=== PATIENT | male | born 1930 | race Caucasian/White ===

== ENCOUNTER → 2016-08-28 08:10 | Outpatient (CLI) | payer MEDICARE, OTHER ==
[2014-06-12 09:05] VITALS: BMI 32.3
[~2016-08-28 08:10] MED LIST: ASPIRIN325 MG PO; GLUCOPHAGE500 MG PO; ISOSORBIDE MONO30 M1 PO; MELATONIN PO; NITROSTAT0.4 MG SL; NORVASC2.5 MG PO; TEMAZEPAM PO
== END | disposition home or self-care (01) ==
LOC: D.US 08:10
DX: I71.4 Abdominal aortic aneurysm, without rupture (principal)

== ENCOUNTER → 2016-09-07 11:05 | Outpatient (CLI) | payer MEDICARE, OTHER ==
[2014-06-12 09:05] VITALS: BMI 32.3
== END | disposition home or self-care (01) ==
LOC: D.CT 11:05
DX: I71.4 Abdominal aortic aneurysm, without rupture (principal)

== ENCOUNTER 2016-09-19 05:00 | Inpatient (IN) | payer MEDICARE, OTHER ==
--- NOTE | 2016-09-16 11:13 | HP ---
PATIENT: REINALDO NGUYEN MEDICAL RECORD: [id number] ACCOUNT: [id number] LOCATION:[facility] : 31 ADMISSION DATE: 09/19/16 HISTORY AND PHYSICAL EXAMINATION REINALDO Calderon (86yo, M) ID# [id number]. Date/Time09/14/2016 10:42UNYHH30/11/1932Service Dept.NPP_[facility] ClinicProviderEDCAIN BROWER MDInsuranceMed Primary: [place] Insurance # : [id number] PCP : CARLOS BURR Referring Provider Name : CARLOS BURR Employer Name : RETIRED Med Secondary: FOR LIFE ( - MEDICARE SUPPLEMENT) Insurance # : [id number] Referring Provider Name : CARLOS BURR Employer Name : RETIRED Prescription: ESI1 - Member is eligible. Chief Complaint PVD - peripheral vascular disease Followup: Abdominal aortic aneurysm without rupture s/p EVS left iliac repair 11/17/11 s/p EVS AAA repair RTC after CTA abd and pelvis for test results Patient's Care Team Primary Care Provider (): CARLOS BURR: [address] [facility] , [address], [place] [id number], , Referring Provider (): CARLOS BURR: [address] [facility] , [address], [place] [address], , Other: [facility]: [address] [place] [id number], , Patient's Pharmacies [facility] ([facility]): [address] , [place] [address], , Vitals BP:120/74 sitting R arm 09/14/2016 10:27 amBP Cuff Size:adult 09/14/2016 10:27 amHR:64,reg 09/14/2016 10:27 amHt:5 ft 8 in 09/14/2016 10:23 amWt:220 lbs 09/14/2016 10:27 amNotes:not feeling well today. not sleeping well, c/o indigestion for a week 09/14/2016 10:27 amBMI:33.5 09/14/2016 10:27 amAllergies Reviewed Allergies EZETIMIBEHYDROCHLOROTHIAZIDE: RashLANSOPRAZOLE: HivesMETAXALONE: Other - abdominal painNIACIN: HivesMedications Reviewed Medications amitriptyline 25 mg tablet Take 1 tablet(s) every day by oral route.08/14/16 filledMEDCOamLODIPine 2.5 mg tablet Take 1 tablet(s) every day by oral route as directed.08/14/16 filledMEDCOaspirin 325 mg tablet,delayed release Take 1 tablet(s) every day by oral route as directed.07/29/10 enteredBartow Karrazithromycin 250 mg alhmrd37/17/16 filledMEDCOciprofloxacin 500 mg ehupyg93/25/17 filledMEDCOdonepezil 5 mg tablet TAKE 1 TABLET DAILY08/29/16 filledMEDCOergocalciferol (vitamin D2) 50,000 unit gfecxzr93/25/17 filledMEDCOfluticasone 50 mcg/actuation nasal spray,suspension Use two sprays once daily06/25/16 filledMEDCOFluzone High-Dose 2014-16 (PF) 180 mcg/0.5 mL intramuscular elfcmgz38/19/15 filledsurescriptsgabapentin 300 mg yvlqevj07/14/17 filledMEDCOgabapentin 600 mg tablet HISTORY AND PHYSICAL [id number] REINALDO NGUYEN Take 1 tablet(s) 3 times a day by oral route for 90 days.08/14/16 filledMEDCOhydrocortisone 2.5 % topical cream08/14/16 filledMEDCOisosorbide mononitrate ER 30 mg tablet,extended release 24 hr Take 1 tablet(s) every day by oral route.08/14/16 filledMEDCOketoconazole 2 % qrnitwr02/06/16 filledMEDCOmelatonin 3 mg tablet Take 1 tablet(s) as needed by oral route at bedtime.09/15/13 enteredKim MorganmetFORMIN 500 mg tablet TAKE 1 TABLET EVERY DAY IN THE IEUEEFJ16/18/17 lvqodnZCBDFipphqqhalkom82/04/14 enteredKim Morganmupirocin 2 % topical msvyupbs61/25/17 filledMEDCONitrostat 0.4 mg sublingual ymlymx41/05/17 filledMEDCOpantoprazole 40 mg tablet,delayed release TAKE 1 TABLET DAILY04/05/16 filledMEDCOpravastatin 80 mg tablet TAKE 1 TABLET DAILY07/20/16 filledMEDCORemeron 15 mg tablet Take 1 tablet(s) every day by oral route at bedtime for 30 days.08/09/15 prescribedThomas Liliam Burr, CASSIDYtool Kitjafum08/04/14 enteredKim Morgantemazepam 30 mg hspkfzy28/10/17 filledMEDCOVentolin HFA 90 mcg/actuation aerosol eegwkjs50/17/16 filledMEDCOProblems Reviewed Problems Type 2 diabetes mellitus Dementia Insomnia Obstructive sleep apnea syndrome Impacted cerumen Coronary arteriosclerosis Abdominal aortic aneurysm without rupture Aneurysm - Left Iliac Nasal polyp Chronic rhinitis 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 Spinal stenosis of lumbar region Chronic low back pain Sciatica Sleep pattern disturbance Poor short-term memory Hyperglycemia Family History Discussed Family History Mother- Heart disease ( age: 66) - previously recorded as Heart ProblemMaternal Grandfather- Heart disease - previously recorded as Heart ProblemSister- Malignant neoplastic disease - previously recorded as Cancer, otherMaternal Grandmother- Heart disease - previously recorded as Heart ProblemSocial History Discussed Social History General Occupation: retired Smoking Status: Former smoker (Notes: quit 1955) Smoker (1 PPD) (Notes: for 10 years) Alcohol intake: Occasional (Notes: socially 1-2 week) Surgical History Reviewed Surgical History Other - 06/2014 - PTCA stent AAA Repair - 04/23/2009 HISTORY AND PHYSICAL [id number] REINALDO NGUYEN CABG - 2000 Past Medical History Discussed Past Medical History Aneurysmn (specify): Y - aortic with right iliac artery Angina: Y Aortic Aneurysm: Y Bladder Problems: Y Chest Pain: Y Circulation Problems: Y Coronary Artery Disease: Y Eye Problems: Y Heart Disease: Y High Blood Pressure: Y Hypertension: Y Prostate Problems: Y Documents for Discussion N/A Screening None recorded. HPI Peripheral Vascular Disease Reported by patient. Location: abdomen Associated Symptoms: no weakness; no numbness; no paresthesias; no skin discoloration; no fever left hip claudication ROS Patient reports exercise intolerance but r eports no fever, no night sweats, no significant weight gain, and no significant weight loss. He reports no chest pain, no arm pain on exertion, no shortness of breath when walking, no shortness of breath when lying down, no palpitations, and no known hea rt murmur; left hip claudication. He reports back pain but reports no muscle aches, no muscle weakness, no arthralgias/joint pain, and no swelling in the extremities; back and left hip pain. He reports no dry eyes, no irritation, and no vision change. He re ports no difficulty hearing and no ear pain. He reports no frequent nosebleeds and no nose/sinus problems. He reports no sore throat, no bleeding gums, no snoring, no dry mouth, no mouth ulcers, no oral abnormalities, and no teeth problems. He reports no c ough, no wheezing, no shortness of breath, and no coughing up blood. He reports no abdominal pain, no vomiting, normal appetite, no diarrhea, not vomiting blood, no nausea, and no constipation. He reports no incontinence, no difficulty urinating, no hemat u sonia, and no increased frequency. He reports no abnormal mole, no jaundice, and no rashes. He reports no loss of consciousness, no weakness, no numbness, no seizures, no dizziness, and no headaches. He reports no depression, no sleep disturbances, feeling safe in relationship, and no alcohol abuse. He reports no fatigue. He reports no swollen glands and no bruising. He reports no runny nose, no sinus pressure, no itching, no hives, and no frequent sneezing. ROS as noted in the HPI Physical Exam Patient is an 86-year-old male. Constitutional: General Appearance healthy-appearing, well developed, and overweight. Level of Distress chronically ill. Ambulation limited ambulation. Cardiovascular: Apical Impulse not displaced or no thrill. Heart Auscultation normal s1 and s2; no murmurs, rubs, or gallops; and RRR. Arterial Pulses no abdominal aorta HISTORY AND PHYSICAL [id number] REINALDO NGUYNE bruits, femoral bruits, or popliteal bruits; femoral diminished (left), popliteal not palpable, and dorsalis pedis not palpable (left); and 2+ bilateral, carotid 2+ bilateral, and femoral 2+ bilateral. Edema no edema or varicosities. Lungs: Repiratory Effort no dyspnea. Percussion no hyperresonance or dullness or flatness. Auscultation no wheezing, rhonchi, or rales / crackles and breathing sounds normal, good air movement, and CTA except as noted. Abdomen: Bowl Sounds normal. Inspection and Palpation no tenderness, guarding, masses, or rebound tenderness and soft and non-distended. Liver non-tender and no hepatomegaly. Spleen non-tender and no splenomegaly. Hernia none palpable. Ears, Nose, Throat: Hearing grossly normal hearing. Nose no external nose lesion. Lips, Teeth, and Gums no mouth or lip ulcers. Oropharynx: moist mucous membranes. Musculoskeletal System: Gait And Stance normal gait and stance. Digits and Nails normal nails and no cyanosis. Joints, Bones, and Muscles limited ROM and abnormal strength. Neurologic: Cranial Nerves grossly intact. Reflexes DTRs 2+ bilaterally throughout. Sensation grossly intact. Lymph Nodes: Lymph Nodes no cervical LAD, supraclavicular LAD, axillary LAD, or inguinal LAD. Eyes: Lids and Conjunctivae no discharge or pallor and non-injected. Pupils PERRLA. Cornea grossly intact. EOM EOMI. Lens clear. Sclerae non-icteric. Neck: Neck no masses, enlarged lymph nodes, or carotid bruits and supple and trachea midline. Thyroid no enlargement or nodules and non-tender. Skin: Inspection and Palpation no rash, lesions, ulcers, jaundice, or abnormal nevi. Assessment / Plan claudication left hip and interferes with his daily activities 1. Abdominal aortic aneurysm without rupture I71.4: Abdominal aortic aneurysm, without rupture ABDOMINAL AORTIC ANEURYSM: CARE INSTRUCTIONS Discussion Notes total occlusion left limb of endovascular stent. He has claudication that interferes with daily activities including climbing the stairs to his bedroom. I have discussed his disease process with him and his in detail as well as the alternative methods of treatment. We di s cussed femoral-femoral bypass including the expected benefits and risk which included bleeding, infection, stroke, loss of limb, and , and the imponderables. He understands all of the above and wishes to proceed with planned surgery as soon as possib le. HISTORY AND PHYSICAL [id number] REINALDO NGUYEN EDWARD MD at 1113 CC: [id number] DICTATION DATE: 09/14/16 1030 STUDENT LIFE DEAN: POPPY 09/15/16 1445 PRE IN [place] [id number] [place] [id number]
[2016-09-18 11:19] LABS: APPEARANCE CLEAR (CLEAR); BILIRUBIN NEGATIVE (NEGATIVE); COLOR YELLOW (YELLOW); GLUCOSE NEGATIVE (NEGATIVE); KETONE NEGATIVE (NEGATIVE); LEUKOCYTE ESTERASE NEGATIVE (NEGATIVE); NITRITE NEGATIVE (NEGATIVE); PROTEIN NEGATIVE (NEGATIVE); UROBILINOGEN NORMAL (NORMAL)
[2016-09-18 11:21] LABS: HEMATOCRIT 45.3 % (42.0-54.0); HEMOGLOBIN 15.4 g/dL (13.5-17.5); MCH 31.3 pg (26.0-34.0); MCV 92.1 fL (80.0-100.0); MEAN PLATELET VOLUME 11.4 fL (7.4-10.4); RBC 4.92 10x6/uL (4.20-6.10); RDW 13.2 % (11.5-14.5); WBC 5.1 10x3/uL (4.8-10.8)
[2016-09-18 11:51] LABS: ALBUMIN 3.5 g/dL (3.4-5.0); ANION GAP 11.6 mmol/L (8-16); BILIRUBIN - TOTAL 0.8 mg/dL (0.2-1.3); CALCIUM 8.7 mg/dL (8.5-10.1); CARBON DIOXIDE 28.3 mmol/L (21.0-32.0); CREATININE - SERUM 1.1 mg/dL (0.6-1.3); POTASSIUM - SERUM 3.9 mmol/L (3.5-5.1); PROTEIN - SERUM 7.3 g/dL (6.4-8.2)
[2016-09-18 11:53] LABS: INR 1.04 (0.85-1.17); PROTIME 13.4 SECONDS (11.6-15.0)
[~2016-09-19] VITALS: Ht 172.7 cm; Wt 102.5 kg
[2016-09-19] VITALS (20 sets, daily range): BP systolic 104–140; BP diastolic 46–73; BMI 32.6; BMI 33.3
--- NOTE | ~2016-09-19 | OP ---
PATIENT NAME: REINALDO NGUYEN MEDICAL RECORD: [id number] :31 LOCATION:[facility] ADMISSION DATE:09/19/16 SURGEON: RICK JUÁREZ MD DATE OF OPERATION: 09/19/2016 SURGEON: Rick Juárez MD. ANESTHESIA: General endotracheal, Dr. Scherer. OPERATION PERFORMED: Right to left femoral-femoral bypass utilizing an 8 mm Bard Impra graft. PREOPERATIVE DIAGNOSIS: Rest pain and severe claudication of the left hip. POSTOPERATIVE DIAGNOSIS: Rest pain and severe claudication of the left hip INDICATION FOR OPERATION: Total occlusion of the left iliac artery with symptomatic rest pain. FINDINGS OF THE OPERATION: The Impra graft is a Bard peripheral vascular, lot number [id number]. ESTIMATED BLOOD LOSS: Less than 125 mL. DESCRIPTION OF PROCEDURE: After informed consent and adequate preoperative medication evaluation, the patient was brought to the operating room, placed on the table in the supine position. After induction of general endotracheal anesthesia and application of appropriate monitoring devices, the chest, abdomen and both groins were prepped and draped in a sterile field, utilizing Betadine scrub, alcohol and Betadine solution. A Betadine-impregnated drape was also used. The patient had had 2 previous dissections in the left leg for endovascular stent repair of his abdominal aortic aneurysm as well as endovascular stent repair of an enlarging left iliac artery aneurysm. His right groin had been entered once with several percutaneous interventions. After induction of general endotracheal anesthesia and application of appropriate monitoring devices and prepping, the left groin was explored through an oblique incision just below the inguinal crease. Dissection was carried down the fascia. The superficial femoral artery was identified and dissected back to the takeoff of the profunda femoral artery. The tributaries were surrounded with vessel loops. Attention was then turned toward the right groin and an incision was made above the inguinal ligament. Dissection was carried down to the fascia, hemostasis maintained with electrocautery. The inguinal ligament was elevated and dissection carried out in the distal iliac and proximal common femoral artery. Dissection was then carried out in the preperitoneal space behind the rectus muscle bilaterally and a Loren passer placed behind the rectus muscle. The patient was given a calculated dose of heparin and an 8-mm graft was threaded in the preperitoneal space. The first anastomosis was on the right. The iliac was clamped proximally and distally and the artery opened. The graft was tailored in an end-to-side anastomosis fashion utilizing running 5-0 Albany-Jonathan suture. The clamps were removed from the artery and transferred to the graft. There was good hemostasis. Attention was then turned toward the left groin. The superficial femoral artery was opened just distal to the takeoff of the profunda, and the distal anastomosis fashioned end-to-side utilizing a running 5-0 Albany-Jonatahn suture. All maneuvers to remove trapped air OPERATIVE REPORT [id number] REINALDO NGUYEN were performed, the clamps removed sequentially, artery secured and there was excellent flow through the femoral-femoral graft as well as distally into the right common femoral artery. The patient was given a calculated dose of protamine to reverse the heparin. Hemostasis was achieved. Instrument counts and sponge counts were correct times 2. The wound was closed in layers utilizing 2-0 Vicryl on deep subcutaneous tissue, 3-0 Vicryl on the superficial subcutaneous tissues and skin approximated with 5-0 subcuticular Monocryl. Sterile dressings were applied. The patient tolerated the procedure well and was transferred to CV ICU in satisfactory condition. TRANSINT:[id number] Voice Confirmation ID: [id number] DOCUMENT ID: [id number] RICK JUÁREZ MD CC: [id number] DICTATION DATE: 09/19/161116 AWS SOFTWARE DEVELOPMENT ENGINEER: 09/19/16 2100 ADM IN [facility] [address] [place] [id number]
[2016-09-19] MEDS ORDERED: PLAVIX75 MG PO (05:55)
[2016-09-19] MEDS ORDERED: PRAVACHOL80 MG PO (05:56)
[2016-09-19] MEDS ORDERED: ARICEPT5 MG (05:57)
[2016-09-19] MEDS ORDERED: ELAVIL25 MG PO (05:57)
[2016-09-19] MEDS ORDERED: DOXEPIN HCL10 MG PO (05:58)
[2016-09-19 11:52] LABS: HEMATOCRIT 41.3 % (42.0-54.0); HEMOGLOBIN 14.1 g/dL (13.5-17.5)
--- NOTE | 2016-09-19 12:00 | NUR ---
RECIEVED PT TO ROOM FROM OR. ATTACHED TO ICU MONITORS. FULL ASSESSMENT COMPLETE PER FLOWSHEET. BILAT GROIN DRESSING'S INTACT. GROIN SITES SOFT WITH NO BRUISING NOTED AT THIS TIME. PP EASILY FOUND USING DOPPLER. CALL LIGHT IN REACH. BED IN LOW POSITION. WILL RECOVER PT.
--- NOTE | 2016-09-19 12:28 | NUR ---
AT BEDSIDE. DR. BROWER PRIVIDED UPDATE.
--- NOTE | 2016-09-19 15:17 | NUR ---
* Is the patient Alert and Oriented? Yes 0 * How many steps to enter\exit or inside your home? 2 0 * PCP Dr. Sierra ([facility]) 0 * Pharmacy [facility] 0 * Preadmission Environment Home with Family 0 * ADLs Independent 0 * Equipment CPAP Rolling Walker 0 * List name and contact numbers for known caregivers / representatives who currently or will assist patient after discharge: Spouse - Raquel [phone] or [phone] 0 * Additional services required to return to the preadmission environment? No 0 * Can the patient safely return to the preadmission environment? Yes 0 * Has this patient been hospitalized within the prior 30 days at any hospital? No Patient Name: REINALDO NGUYEN Admission Status: Elective Accout number: [id number] Admission Date: 09-19-2016 : 1931 Admission Diagnosis: Attending: MAGGIE Current LOS: 1 Anticipated DC Date: 09-24-2016 Planned Disposition: Home Primary Insurance: MEDICARE A & B Discharge Planning Comments: CM met with patient & spouse to assess dc plan/needs. Patient states they live together in a two story home - bedroom is upstairs (16 steps). He reports he is independent with all ADL's & IADL's. He states he uses a walker at times & has a home CPAP machine. He denies having had home health services in the past. At fl, he plans to return home with his . He is not opposed to home health services if necessary. CM will follow & assist as needed. Furniture Arranger: Yoly Nuñez
--- NOTE | 2016-09-19 16:30 | NUR ---
PT RECIEVED MEAL TRAY. STATED HE DID NOT WANT TO EAT A REGULAR DIET. JELLO OFFERED AND ACCEPETED. FRESH ICE WATER ALSO PROVIDED.
--- NOTE | 2016-09-19 17:15 | NUR ---
LEFT TO GO HOME. SECURITY CALL IN CODE SET UP.
--- NOTE | 2016-09-19 19:00 | NUR ---
REPORT RECIEVED. ASSESSMENT COMPLETE PER FLOW SHEET. VSS. PT AWAKE ALERT DISORIENTED TO SITUATION. EYES PERRLA 3MM BRISK. O2 VIA NC2L O2 SAT 97% RR 16 NON LABORED SHALLOW BILAT LUNGS CLEAR. HEART S1S2 HR 72 NSR. BP 124/54 VIA R RADIAL ART LINE PATENT WITH GOOD WAVEFORM EXTREMETY PINK WITH GOOD SENSATION WRIST PROTECTOR ON. L SUBCLAVIAN CVL PATENT REFER TO FLOW SHEET FOR INFUSIONS. BS ACTIVE X4. BILAT GROIN INCISION SITE DRSG CDI. NO HEMATOMA PRESENT MINIMAL BRUISING NOTED. HOB AT 20 DEGREES HEELS BRIDGED LEGS STRAIGHT. BILAT PEDAL PULSES PALP +2 AND FOUND VIA DOPPLER. DENIES PAIN OR NEEDS. VSS. WILL CONTINUE TO MONITOR
--- NOTE | 2016-09-19 21:00 | NUR ---
2100 MEDS ADM NO NEW CHANGES. VSS. WILL CONTINUE TO MONITOR
--- NOTE | 2016-09-19 23:00 | NUR ---
REASSESSMENT COMPLETE PER FLOW SHEET. VSS. NO NEW CHANGES. WILL CONTINUE TO MONITOR
[2016-09-20] VITALS (24 sets, daily range): BP systolic 105–126; BP diastolic 33–60; Ht 172.7 cm; Wt 102.5 kg
--- NOTE | 2016-09-20 00:42 | NUR ---
PT SLEEPING COMFORTABLY. VSS. WILL CONTNIUE TO MONITOR
--- NOTE | 2016-09-20 01:40 | NUR ---
PT INCREASINGLY CONFUSED, DISIORIENTED TO PLACE AND SITUATION. REPEATEDLY REMOVING MONITORING EQUIPMENT ASKED MULTIPLE TIMES TO LEAVE EQUIPMENT ALONE, ATTEMPT TO USE DISTRACTION TECHNIQUES BY WATCHING TV/ READING BOOK PT REFUSED. PT GRABS A-LINE AFTER EXPLAINING THE IMPORTANCE OF A-LINE AND CONSEQUENCES OF REMOVING. PT STATES "YOU CAN NOT TELL ME WHAT TO DO, THIS IS MY EQUIPMENT NOW AND I CAN DO I PLEASE IT IS LIKE PAYING A BILL." I REMOVED A LINE FROM PT HAND AND REAPPLIED WRIST PROTECTOR EXPLAINED IMPORTANCE. REFUSES TO STOP REMOVING. CALLED [facility] ICU CHARGE FOR HELP. PT VSS NOW WATCHING TV. NURSE AT BEDSIDE FOR INCREASED OBSERVATION. WILL CONTINUE TO MONITOR
--- NOTE | 2016-09-20 03:20 | NUR ---
RADIOLOGY AT BEDSIDE. PT COMPLIED.
--- NOTE | 2016-09-20 03:40 | NUR ---
RESP. AT BEDSIDE. NO NEW CHANGES
--- NOTE | 2016-09-20 05:40 | NUR ---
REPOSISITONED UP IN BED. NO NEW CHANGES. WILL CONTINUE TO MONITOR
[2016-09-20 06:47] LABS: HEMATOCRIT 35.6 % (42.0-54.0); MCH 31.3 pg (26.0-34.0); MCHC 33.7 g/dL (31.0-37.0); RDW 13.6 % (11.5-14.5); WBC 6.3 10x3/uL (4.8-10.8)
[2016-09-20 06:52] LABS: RBC 3.83 10x6/uL (4.20-6.10)
[2016-09-20 07:06] LABS: ALBUMIN 2.5 g/dL (3.4-5.0); ANION GAP 9.4 mmol/L (8-16); BILIRUBIN - TOTAL 1.3 mg/dL (0.2-1.3); CALCIUM 7.4 mg/dL (8.5-10.1); CARBON DIOXIDE 29.2 mmol/L (21.0-32.0); CREATININE - SERUM 1.1 mg/dL (0.6-1.3); POTASSIUM - SERUM 3.6 mmol/L (3.5-5.1); PROTEIN - SERUM 5.3 g/dL (6.4-8.2)
--- NOTE | 2016-09-20 07:15 | NUR ---
REPORT RECIEVED FROM GEOSPATIAL IMAGE ANALYST NURSE. PT RESTING IN BED WITH EYES CLOSED. RESP EVEN AND UNLABORED. NO S/SX OF ACUTE DISTRESS NOTED AT THIS TIME. VSS. ASSESSMENT COMPLETE PER FLOWSHEET. CALL LIGHT IN REACH. WILL CONT TO ASSESS FOR CHANGES THROUGHOUT SHIFT.
--- NOTE | 2016-09-20 08:30 | NUR ---
DR. BROWER AT BEDSIDE. UDPATE PROVIDED.
--- NOTE | 2016-09-20 11:00 | NUR ---
REASSESSMENT COMPLETE PER FLOWSHEET. NO CHANGES NOTED AT THIS TIME. VSS. PT REMAINS CONFUSED AT THIS TIME. WILL CONT TO ASSESS.
--- NOTE | 2016-09-20 13:30 | NUR ---
TRANSFERED BACK TO BED WITH THE ASSISTANCE OF ANOTHER NURSE. REFUSED TO STAY IN CHAIR UNTIL PT ARRIVED. REQUIRED MAX ASSIST TO GET BACK IN BED. GAIT UNDSTEADY ON TRANSFER. PT UNCOOPERATIVE WITH STAFF.
--- NOTE | 2016-09-20 14:30 | NUR ---
WALKED 250 FT WITH PT. DENIED SOB OR HIP PAIN. ASSISTED BACK TO BED WITH THE ASSISTANCE OF PT.
--- NOTE | 2016-09-20 17:45 | NUR ---
LEFT TO GO HOME. STATED SHE WOULD CALL LATER TO CHECK ON PT. CALL LIGHT IN REACH. BED IN LOW POSITION AND ALARM ON.
--- NOTE | 2016-09-20 19:41 | NUR ---
REPORT RECIEVED. ASSESSMENT COMPLETE PER FLOW SHEET. VSS. PT AWAKE ALERT DISORIENTED TO PLACE TIME AND SITUATION. REORIENTED STATES UNDERSTANDING. EYES PERRLA 3MM BRISK. O2 VIA RA O2 SAT 96% RR 16 NON LABORED BILAT LUNGS CLEAR. HEART S1S2 HR 74 SR. BP 113/54. BS ACTIVE X4. BILAT GROIN INCISION SITE CDI NO DRAINAGE MINIMAL SWELLING NOTED. ICE APPLIED. BILAT PEDAL PULSES PALP +2 HEELS BRIDGED SCD'S ON. DENIES PAIN. VSS WILL CONTINUE TO MONITOR
--- NOTE | 2016-09-20 21:07 | NUR ---
COMPLETE BB LINEN CHANGE ADM. PT INCONTENENT X1. GIVEN UPDATE. VSS. NO NE CHANGES.
[2016-09-21] VITALS (22 sets, daily range): BP systolic 102–144; BP diastolic 51–82
--- NOTE | 2016-09-21 00:41 | NUR ---
REASSESSMENT COMPLETE PER FLOW SHEET. VSS. NO NEW CHANGES. WILL CONTINUE TO MONITOR
--- NOTE | 2016-09-21 01:00 | NUR ---
PT REMOVING MONITOR EQUIPMENT. REAPPLIED. REFUSES TO COMPLY. WILL CONTINUE TO MONITOR
--- NOTE | 2016-09-21 03:20 | NUR ---
REASSESSMENT COMPLETE PER FLOW SHEET. VSS. NO NEW CHANGES. WILL CONTINUE TO MONITOR
--- NOTE | 2016-09-21 07:00 | NUR ---
Received report and assumed care of patient. Patient had voided on himself, patient cleaned up and gotten up to chair with 2 person assistance. Set up with breakfast tray. Call light in lap. Patient denies needs. Denies pain.
--- NOTE | 2016-09-21 07:50 | NUR ---
Patients in room with patient. Update given to .
--- NOTE | 2016-09-21 08:27 | NUR ---
Patient finished with breakfast, remains up in chair. remains at bedside.
--- NOTE | 2016-09-21 08:34 | NUR ---
in room to see patient. Patient to ambulate with PT today. Talks of possible rehab if patient does not progress mobility lyle. Wifes concerns addressed per .
--- NOTE | 2016-09-21 10:00 | NUR ---
Patient was requesting to stand. Called Mohamud with PT to come up, Mohamud in room and walked patient with walker. Per Mohamud, patient did significantly worse than yesterday. Patient had shuffeling gait and was only able to ambulate short distance. Called Francisca Jones RN and informed her of this. She will notify Franck. Will await further orders. Patient in chair with at bedside at this time.
--- NOTE | 2016-09-21 11:30 | NUR ---
Francisca Jones RN in to see patient, informed patient and that he has a Rehab consult and they will evaluate.
--- NOTE | 2016-09-21 11:49 | NUR ---
Rehab Prescreening Consult recieved and the chart has been reviewed. He is a good IRF candidate, however the nurse notes indicate he is confused, disoriented and does not comply with nurses. To qualify for IRF he needs to be able to actively participate in 3 hrs of therapy 5 days a week. Rehab will follow and plan to accept when he is medically stable and his mental status is back to baseline. Thank you for the referral. Jaye Johnson RN Clinical Liaison, Rehab
--- NOTE | 2016-09-21 11:55 | NUR ---
Patient set up with lunch tray, at bedside.
--- NOTE | 2016-09-21 12:02 | NUR ---
instructed not to feed patient. informed that patient was feeding himself this morning and doing fine with doing so. stepped away and patient now self feeding without issue.
--- NOTE | 2016-09-21 12:10 | NUR ---
Called and left for Jaye RN in Rehab regarding patients condition and mental status, waiting on return call.
--- NOTE | 2016-09-21 13:25 | NUR ---
Mohamud with Pt ambulated patient, patient did better than this morning. Patient requested to sit in a different chair than earlier, states it is more comfortable. informed of visitation hours by medical charge entry specialist and asked to step out until 1500 visitation.
--- NOTE | 2016-09-21 15:00 | NUR ---
back in room, c/o rn charge making her leave, informed that is visitation policy. Patient remains up in chair.
--- NOTE | 2016-09-21 16:41 | NUR ---
Patient gotten back to bed with assist x 3 nurses. Patient followed commands and assisted with transfer.
--- NOTE | 2016-09-21 18:23 | NUR ---
Patient resting in bedm call light in reach, denies needs.
--- NOTE | 2016-09-21 19:30 | NUR ---
ASSESSMENT COMPLETED. SEE ASSESSMENT. CONFUSED. REORIENTED. LEFT SC CVL SALINE LOCKED. BILATERAL GROIN INCISION C/D/I WITH BROWN DRSGS INTACT. LEFT GROIN WITH SCATTERED BRUISING NOTED ABOVE THE SITE. PALPABLE PERIPHERAL PULSES +1 PEDAL AND POSTERIOR TIBIAL PULSES. WILL MONITOR.
--- NOTE | 2016-09-21 20:29 | NUR ---
BUBBA WITH R.T. AT BEDSIDE TO DO INCENTIVE SPIROMETRY. 750ML OBTAINED. WILL MONITOR.
--- NOTE | 2016-09-21 21:00 | NUR ---
2100 MEDS GIVEN WITHOUT DIFFICULTY. REPORTS HE TAKES SEVERAL THINGS TO HELP HIM SLEEP. ATTEMPTED TO URINATE INTO URINAL. 100ML OF JUDY URINE NOTED AND URINE NOTED ON BLANKET AND ON WHITE PADS BELOW HIM. POSTERIOR BODY CLEANSED AND JULIETA CARE GIVEN. TURNED AND REPOSITIONED FOR COMFORT. WILL MONITOR.
--- NOTE | 2016-09-21 22:00 | NUR ---
HOLLERING OUT. PULLED OFF GOWN AND MONITORING EQUIPMENT. REPLACED EQUIPMENT. INFORMED OF NEED TO KEEP ON. CONFUSED TO PLACE, TIME AND SITUATION. REORIENTED.
--- NOTE | 2016-09-21 23:30 | NUR ---
REASSESSMENT COMPLETED. SEE ASSESSMENT FLOWSHEET. CONFUSED MORE THAN BEFORE. PULLING AT O2 SAT SENSOR ON MONITOR. ON ROOM AIR. REMOVED CABLE FROM HIS REACH. REORIENTED. RAMBLING WORDS AT TIMES NOT UNDERSTANDABLE. PLACED B/P CUFF BACK ON AND INFORMED OF IMPORTANTANCE TO KEEP ON. WILL MONITOR.
[2016-09-22] VITALS (22 sets, daily range): BP systolic 110–140; BP diastolic 48–96
--- NOTE | 2016-09-22 01:30 | NUR ---
EYES CLOSED. ARMS IN THE ARM REACHING AT SOMETHING. SNORE-LIKE NOISES ALSO HEARD AFTER LEAVING THE ROOM.
--- NOTE | 2016-09-22 03:30 | NUR ---
EYES CLOSED. NO ACUTE DISTRESS NOTED. WILL MONITOR.
--- NOTE | 2016-09-22 04:10 | NUR ---
AWAKE. STATING "IS IT ONLY 0400 IN THE MORNING?" INFORMED THAT IT WAS. ASKED IF HE WANTED TO TURN OVER. REPORTED YES. ALSO REPORTED HE NEEDED TO PEE ONCE ASKED. HELD URINAL FOR HIM SO HE COULD URINATE. 300ML OF DARK, JUDY URINE NOTED. JULIETA CARE COMPLETED. TURNED TO RT SIDE WITH PILLOW SUPPORT. DENIES NEEDS. REASSESSMENT COMPLETED. SEE ASSESSMENT. WILL MONITOR.
--- NOTE | 2016-09-22 05:30 | NUR ---
HAD URINAL IN HIS HAND. ASKED IF HE NEEDED TO "PEE". HE DID AND ATTEMPTED WITH NO SUCCESS. WILL MONITOR.
--- NOTE | 2016-09-22 06:10 | NUR ---
EYES CLOSED. SNORE-LIKE NOISES HEARD. AM LABS DRAWN FROM LEFT SC CVL WITHOUT DIFFICULTY AND FLUSHES WELL. MORE PVC'S NOTED THIS MORNING. WILL CHECK K+ LEVEL. WILL MONITOR.
[2016-09-22 06:23] LABS: HEMATOCRIT 33.9 % (42.0-54.0); HEMOGLOBIN 11.5 g/dL (13.5-17.5); MCH 31.2 pg (26.0-34.0); MCHC 33.9 g/dL (31.0-37.0); MCV 91.9 fL (80.0-100.0); MEAN PLATELET VOLUME 10.6 fL (7.4-10.4); RBC 3.69 10x6/uL (4.20-6.10); RDW 13.4 % (11.5-14.5); WBC 6.8 10x3/uL (4.8-10.8)
[2016-09-22 06:46] LABS: ALBUMIN 2.3 g/dL (3.4-5.0); ALKALINE PHOSPHATASE 50 U/L (46-116); CALC OSMOLALITY 271 mosm/kg (275-300); CALCIUM 7.8 mg/dL (8.5-10.1); CARBON DIOXIDE 28.8 mmol/L (21.0-32.0); CHLORIDE - SERUM 101 mmol/L (98-107); GLUCOSE 120 mg/dL (74-106); POTASSIUM - SERUM 3.1 mmol/L (3.5-5.1); PROTEIN - SERUM 5.9 g/dL (6.4-8.2); SODIUM 136 mmol/L (136-145); UREA NITROGEN 9 mg/dL (7-18)
[2016-09-22 06:55] LABS: ALT (SGPT) 29 U/L (10-68); CREATININE - SERUM 0.8 mg/dL (0.6-1.3); eGFR NON AFRICAN AMERICAN > 90 mL/min (90-120)
--- NOTE | 2016-09-22 07:30 | NUR ---
SHIFT REPORT RECEIVED. ASSUMED CARE OF PATIENT. PT IS AWAKE, CONVERSANT. FOLLOWS COMMANDS. MORNING LAB RESULTS INDICATE 3.1 POTASSIUM. SEPARATIONS SCIENTIST NURSE HAS CONTACTED ADMITTING PHYSICIAN REGARDING RESULTS. HE IS AWARE.
--- NOTE | 2016-09-22 08:45 | NUR ---
PT UP WALKING AT THIS TIME WITH PHYSICAL THERAPY.
--- NOTE | 2016-09-22 09:15 | NUR ---
PT SITTING UP IN CHAIR. BREAKFAST EATEN. POTASSIUM RIDER STARTED. AT BEDSIDE.
--- NOTE | 2016-09-22 09:33 | NUR ---
NUTRITION MONITORING & EVAL CHART REVIEWED. PT REPORTS PT WITH GOOD PO INTAKE ADA DIET. WILL CONTINUE TO PROVIDE DIET, MONITOR PO INTAKE. RD FOLLOWING
--- NOTE | 2016-09-22 10:07 | NUR ---
STAFF FROM REHAB IN PATIENT ROOM FOR EVALUATION. SPEAKING WITH PATIENT AND AT THIS TIME.
--- NOTE | 2016-09-22 10:31 | NUR ---
Reviewed chart and visited with the patient and his at length this morning. According to his and the nurses notes he was more confused last night and difficult to reorient. His says he was combative with her before she left to go home. She does not feel he is ready for rehab at this time. She feels he is to weak and will not be able to participate in 3 hrs of therapy everyday. I assured her he did meet medical and physical criteria but his night time confusion was concerning. At this time he would need a private room and a sitter at night, neither of which is available on the rehab unit. Discussed this with the pt's nurse Stevie and the CM Yoly Nuñez RN. Jaye Johnson RN CL
--- NOTE | 2016-09-22 11:31 | NUR ---
PT ASSISTED TO STAND. C/O BOTTOM HURTING AND NEEDS TO REPOSITION. TRANSFER TO OTHER CHAIR IN ROOM FOR COMFORT. AT BEDSIDE.
--- NOTE | 2016-09-22 12:00 | NUR ---
POTASSIUM RIDER COMPLETE. ACCESS FLUSHED PER PROTOCOL. NO NEW ORDERS FOR LABS.
--- NOTE | 2016-09-22 14:20 | NUR ---
PT HAVING DIFFICULTY HAVING BOWEL MOVEMENT. SAYS IT HAS BEEN SINCE SUNDAY THAT SHE LAST RECALLS HIM HAVING A BOWEL MOVEMENT. PRUNE JUICE HAS BEEN GIVEN AND ORDER FOR MIRALAX RECEIVED.
--- NOTE | 2016-09-22 15:50 | NUR ---
PT ASSISTED BY UP TO TOILET. MISSED TOILET FOR URINATION. LARGE PUDDLE AROUND TOILET. PT COMPLAINING OF SCROTUM BURNING. BUTT PASTE APPLIED. PT LEGS AND FEET CLEANED UP AND DRY SOCKS APPLIED.
--- NOTE | 2016-09-22 16:45 | NUR ---
PT DINNER TRAY PROVIDED. DENIES ANY OTHER NEEDS. AT BEDSIDE.
--- NOTE | 2016-09-22 17:20 | NUR ---
PT ASSISTED TO TOILET. UNABLE TO HAVE BOWEL MOVEMENT. ASSISTED BACK TO CHAIR.
--- NOTE | 2016-09-22 18:07 | NUR ---
PT ASSISTED TO BED. ALL NEW LINENS PLACED PRIOR TO PT GOING TO BED. ONLY ATE FRUIT OFF OF DINNER TRAY. WORRIED HAMBURGER STEAK WITH GRAVY WOULD "GIVE HIM INDIGESTION," AND HE STATES "I'M ON A DIET ANY WAY." DENIED WANTING ANYTHING ELSE. SIDE RAILS X3 AND BED ALARM ON.
--- NOTE | 2016-09-22 19:25 | NUR ---
PT HAS FLUIDS DUE ON EMAR. ORDER FOR SALINE LOCK OF IV WAS ENTERED 09/20/16. NO IV FLUIDS HAVE BEEN GIVEN SINCE 09/20/16. ORDER DISCONTINUED
--- NOTE | 2016-09-22 19:30 | NUR ---
SHIFT ASSESSMENT COMPLETED. SEE ASSESSMENT. CONFUSED TO PLACE AND SITUATION. ORIENTED TO YEAR. SOME THINGS HE SAYS ARE APPROPRIATE TO SITUATION SUCH HE HASN'T HAD A BM ETC AND THAT HIS WENT HOME BECAUSE THERE IS NO BED FOR HER HERE. THEN SAYS HE IS ON THE [employer] COURSE AND HE IS HERE FOR THE GROUP. REORIENTED. SEE ASSESSMENT FOR FURTHER DETAILS.
--- NOTE | 2016-09-22 20:04 | NUR ---
WANTED TO GET UP TO THE BATHROOM. WITH ASSIST OF 2 NURSES UP OOB WITH WALKER TO COMMODE TO TRY TO HAVE A BM.
--- NOTE | 2016-09-22 20:26 | NUR ---
BACK TO BED WITH ASSIST. NO RESULTS IN THE RESTROOM. ASKED WHEN HE WANTED HIS NIGHT-TIME MEDS AND STATED "NOW IS FINE". MEDS GIVEN PRESCRIBED. WILL MONITOR.
--- NOTE | 2016-09-22 21:00 | NUR ---
ASSISTED BACK UP TO BATHROOM WITH ASSIST X2 WITH WALKER. NO RESULTS. BACK TO BED PER REQUEST.
--- NOTE | 2016-09-22 22:15 | NUR ---
WANTED TO GET UP TO USE COMMODE. MAKING SOME JOKES. NO RESULTS AGAIN. BLADDER SCANNED BLADDER AT THIS TIME AND 583ML MAX VOLUME NOTED. WILL MONITOR.
--- NOTE | 2016-09-22 23:20 | NUR ---
CALLED DUE TO CONSTANT CONFUSION, ATTEMPTING TO GET OUT OF BED WITHOUT ASSISTANCE. BECOMING AGITATED. TRIED TO REORIENT HIM. ASSISTED UP TO COMMODE WITH ASSIST OF 2 NURSES AND A WALKER. SHUFFLING GAIT NOTED. ENCOURAGED TO SIT ON TOILET FOR AT LEAST 10-20 MINUTES.
--- NOTE | 2016-09-22 23:30 | NUR ---
IN ATTEMPT TO ASSIST WITH GETTING BACK IN BED, WANTED TO GO OUTSIDE AND TRIED TO LEAVE THE ROOM. ONCE EXPLAINED AGAIN HE WAS IN THE HOSPITAL IN ICU, DISAGREED AND THEN ATTEMPTED TO PUNCH NURSE STANDING IN HIS WAY. HELP ARRIVED AND STILL WAS NON-COMPLIANT AND HAD TO BE PLACED IN BED BY NURSING STAFF X3. PLACED IN SOFT BILATERAL WRIST RESTRAINTS. PLACED BACK ON CONTINUOUS CARDIAC MONITORING EQUIPMENT. CALLED TO GET UPDATE, AND SPOKE ABOUT JUST GETTING HIM BACK IN BED AND RECENT EVENTS. SHE REPORTS SHE WILL BE HEADING UP HERE TO SIT WITH HIM.
--- NOTE | 2016-09-22 23:43 | NUR ---
DR. BROWER CALLED TO MAKE AWARE OF RECENT CONFUSION AND UNCOOPERATIVENESS. INFORMED OF EDEMATOUS SCROTUM AND PENIS AND NO URINE OUTPUT THUS FAR. BLADDER SCANNER RESULTS-583ML. WILL MONITOR AND ASSIST WITH URINATING INTO URINAL NEEDED. NO NEW ORDERS AT THIS TIME.
[2016-09-23] VITALS (24 sets, daily range): BP systolic 106–147; BP diastolic 45–75
--- NOTE | 2016-09-23 00:15 | NUR ---
ARRIVED AND IS NOW AT BEDSIDE. WILL SEE IF RESTRAINTS CAN BE RELEASED.
--- NOTE | 2016-09-23 01:10 | NUR ---
TEMPORARILY RELEASED RESTRAINTS. ASSISTED UP TO BATHROOM TO USE COMMODE. NO RESULTS. DRIBBLES OF URINE NOTED ON WHITE PAD. WHITE PAD CHANGED OUT. BACK TO BED. RESISTED TO GO BACK TO BED FOR A FEW MINUTES THEN TOLD HIM SHE WOULD RUB HIS BACK IF HE LAID DOWN. PULLED UP IN BED AND POSITIONED FOR COMFORT. WILL MONITOR.
--- NOTE | 2016-09-23 02:10 | NUR ---
ATTEMPTED TO PEE IN URINAL WITH AND NURSING ASSIST. NO RESULTS. SPEAKING SENTENCES THAT DO NOT MAKE SENSE. WILL MONITOR.
--- NOTE | 2016-09-23 03:40 | NUR ---
URINATED INTO URINAL WITH 'S ASSISTANCE. DARK, JUDY URINE NOTED-150ML. ENCOURAGED TO TRY TO GO BACK TO SLEEP. WILL MONITOR.
--- NOTE | 2016-09-23 04:50 | NUR ---
URINATED INTO URINAL WITH NURSE ASSIST. STILL CONFUSED BUT MORE COOPERATIVE. RESTRAINTS RELEASED. AT BEDSIDE. REASSESSMENT COMPLETED. SEE ASSESSMENT FLOWSHEET FOR DETAILS.
--- NOTE | 2016-09-23 06:00 | NUR ---
AWAKE. URINATED INTO URINAL WITH 'S HELP. MORE COOPERATIVE THIS MORNING, NOT AGITATED. TOOK B/P CUFF OFF AND WHEN TRYING TO REPLACE IT BACK ON, HE SAYS "YOU'RE HANDS ARE TOO COLD". PLACED ARMS UNDER COVERS. DENIES NEEDS WHEN ASKED. WILL MONITOR.
--- NOTE | 2016-09-23 06:30 | NUR ---
EYES CLOSED. SNORE-LIKE NOISES HEARD. NO ACUTE DISTRESS NOTED. AT BEDSIDE WITH EYES CLOSED. WILL MONITOR.
--- NOTE | 2016-09-23 09:26 | NUR ---
SPOKE WITH ABHISHEK LUNA ON ALF. STATES SHE DID RECIEVE FAX FOR CONSULT. SPOKE WITH DR. CERVANTES CONCERNING CONSULT. STATES TO GET BLADDER SCAN AND HE WILL BE UP TO SEE PT. MED 2 CALLED BLADDER SCANNER REQUESTED.
--- NOTE | 2016-09-23 19:00 | NUR ---
REPORT RECIEVED, INITIAL ASSESSMENT COMPLETE, PLEASE SEE FLOW SHEETS FOR DETAILS. A&O X4. DENIES PAIN/NEEDS ATT. BED LOW AND LOCKED, CALL LIGHT IN REACH. WILL CPOC.
--- NOTE | 2016-09-23 19:30 | NUR ---
COMMUNITY CENTER DIRECTOR LIGHT. UPON ENTERING, AT BEDSIDE, BOTH DENYING NEEDS. REPORTS HE PRESSED THE NURSE BUTTON BY ACCIDENT. WAS TRYING TO CHANGE TV CHANNEL. MORE ORIENTED THAN LAST NIGHT. COOPERATIVE. STATES "ARE YOU BACK TONIGHT?" TOLD HIM I WAS HERE TO HELP TAKE CARE OF HIM BUT I HAD SOMEONE ELSE MORE SICK TONIGHT.
--- NOTE | 2016-09-23 20:10 | NUR ---
PT VOIDED INTO URINAL 390ML YELLOW URINE NOTED. CALLED FOR BLADDER SCANNER.
--- NOTE | 2016-09-23 20:48 | NUR ---
JUST RECIEVED BLADDER SCANNER AND RESIDUAL 221ML, 38 MINUTES POST VOID. PT DENIES PAIN/NEEDS ATT. BED LOW AND LOCKED, CALL LIGHT IN REACH. IN ROOM. WILL CPOC.
--- NOTE | 2016-09-23 23:00 | NUR ---
REASSESSMENT COMPLETE, PLEASE SEE FLOW SHEETS FOR DETAILS. PT TURNS HIMSELF. DENIES PAIN/NEEDS ATT. BED LOW AND LOCKED, CALL LIGHT IN REACH. WILL CPOC.
[2016-09-24] VITALS (24 sets, daily range): BP systolic 98–139; BP diastolic 47–92
--- NOTE | 2016-09-24 00:28 | NUR ---
Patient voided into urinal, 250 out and bladder scan performed and residual showed as 60ml.
--- NOTE | 2016-09-24 01:00 | NUR ---
RUG CLEANING SUPERVISOR LIGHT REQUESTING WATER. WATER GIVEN AND SOME SPILLED ON HIM. CLEANSED OFF HIM. AND WHEN ASKED IF I COULD DO ANYTHING ELSE FOR HIM, STATED "ANOTHER APOLOGY WOULD BE NICE". TOLD HIM I WAS SORRY AGAIN FOR SPILLING WATER ON HIM. IN JOKING SPIRITS. AT BEDSIDE. WILL MONITOR.
--- NOTE | 2016-09-24 01:09 | NUR ---
RESTING. NO S&S OF ACUTE DISTRESS NOTED, SOME CONFUSION NOTED ATT. CANNOT ANSWER ALL QUESTIONS APPROPRIATELY. ASKED TO BE LEFT ALONE. BED LOW AND LOCKED, CALL LIGHT IN REACH. VSS, WILL CPOC.
--- NOTE | 2016-09-24 03:00 | NUR ---
REASSESSMENT COMPLETE, PLEASE SEE FLOW SHEETS FOR DETAILS. PLEASANTLY CONFUSED ATT, JOKING ABOUT WHERE HE IS AND WHO IS PRESIDENT. ALERT TO PERSON AND YEAR, AND TO WHERE HE LIVES. VSS ATT, BED LOW AND LOCKED, MOVES SELF SROUND IN THE BED. CALL LIGHT IN REACH. WILL CPOC.
--- NOTE | 2016-09-24 03:50 | NUR ---
EYES CLOSED. AT BEDSIDE, EYES CLOSED. OCCASSIONAL PVC NOTED ON THE MONITOR. WILL MONITOR.
--- NOTE | 2016-09-24 05:00 | NUR ---
SLEEPING, VSS, BED LOW AND LOCKED, CALL LIGHT IN REACH. WILL CPOC.
--- NOTE | 2016-09-24 08:55 | NUR ---
AMBULATING WITH PHYSICAL THERAPY AND RETURN TO CHAIR-NT ABLE TO DO BLADDER SCAN
--- NOTE | 2016-09-24 08:56 | NUR ---
MODERATE BELLIGERENCE WITH PHYSICAL THERAPY-REGARDING POOR FITTING SLIPPERS FOR PHYSICAL THERAPY-[facility]
--- NOTE | 2016-09-24 19:10 | NUR ---
Received patient resting in bed with eyes closed, assessment completed per flowsheet. Patient confused/disoriented to time/place/situation, calm and follows commands. Eyes PERRLA @ 3mm with brisk response, patient hard of hearing with hearing aids in use bilateral. S1/S2 noted NSR with possible 1st degree block on telemetry, HR 69 rhythmic and regular. Breathing is even and unlabored on room air with O2 sat 94%, lung sounds clear throughout. Old scar noted Mid sternal. Abdomen is round and soft with bowel sounds active x4, non-tender. Patient incontinent of bladder/bowel, no voiding noted at this time. Bilateral incisions noted R/L groin, soft to palpation and dressing CDI. Reddened area/small skin tear noted scrotum, padding applied. Skin is warm/dry to touch, all pulses palpable with cap refill < 3 sec. 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 L subclavian central line noted salin locked, patent with dressing CDI. Patient denies pain or other needs at this time, all VSS and will continue to monitor.
--- NOTE | 2016-09-24 21:00 | NUR ---
No visitors at this time, all HS meds given without difficulty. All pulses palpable with cap refill < 3 sec. Patient is calm and cooperative, follows instructions. Denies pain or other needs at this time, all VSS and will continue to monitor.
--- NOTE | 2016-09-24 21:30 | NUR ---
Spoke to patient's via phone, updated status and answered all questions to satisfaction. Patient requested urinal jug for voiding, assisted and 200ml concentrated yellow urine collected. No further needs at this time, all VSS and will contiue to monitor.
--- NOTE | 2016-09-24 23:05 | NUR ---
Reassessment completed per flowsheet, patient resting in bed with eyes open. Patient still shows some disorientation, but aware he is in hospital and states he's "going home tomorrow". S1/S2 noted NSR on telemetry with possible 1st degree block, HR 73 and regular. Breathing is even and unlabored on room air, O2 sat 95%. All pulses palpable with cap refill < 3 sec, skin is warm/dry to touch. Patient denies pain or other needs at this time, all VSS and will continue to monitor.
[2016-09-25] VITALS: BP 101/43
[2016-09-25 01:00] VITALS: BP 106/45
--- NOTE | 2016-09-25 01:00 | NUR ---
Patient resting in bed with eyes closed, breathing is even and unlabored. Denies pain or other needs at this time, all VSS and will continue to monitor.
[2016-09-25 02:00] VITALS: BP 100/42
--- NOTE | 2016-09-25 02:00 | NUR ---
Patient voided into urinal jug without assistance, 200ml concentrated yellow urin noted in collection. No further needs at this time, all VSS and will continue to monitor.
--- NOTE | 2016-09-25 02:10 | NUR ---
Occaisional PVC's noted on patient telemetry starting around 0200, will make note and continue to monitor.
[2016-09-25 03:00] VITALS: BP 103/45
--- NOTE | 2016-09-25 03:00 | NUR ---
Reassessment completed per flowsheet, patient resting in bed with eyes closed. S1/S2 noted NSR with possible 1st degree block and occasional PVC noted on telemetry with HR 70. Breathing is even and unlabored on room air with O2 sat 95%. Bilateral R/L groin incision dressing CDI, soft to palpation with no bleeding/drainage noted. All pulses palpable with cap refill < 3 sec, skin is warm/dry to touch. Patient slightly disoriented to time/situation, calm and cooperative following commands. Patient denies pain or other needs at this time, all VSS and will continue to monitor.
[2016-09-25 04:00] VITALS: BP 98/53
--- NOTE | 2016-09-25 05:00 | NUR ---
Patient awake in bed requesting assistance to bathroom. Assisted out of bed and patient ambulated to bathroom on own, gait is steady and slightly bent forward. Patient voided without difficulty, assisted to chair at bedside. Patient requested assurance that his "knew where to pick him up today" and stated "he's going home when he gets some clothes". Explained discharge procedure to him, patient states understanding and appears more relaxed. No further needs at this time, all VSS and will continue to monitor.
[2016-09-25 07:00] VITALS: BP 123/50
--- NOTE | 2016-09-25 07:00 | NUR ---
ASSESSMENT PER FLOWSHEET.
[2016-09-25] MEDS ORDERED: FLOMAX0.4 MG PO (09:39)
[2016-09-25] MEDS ORDERED: K-DUR20 MEQ PO (09:39)
[2016-09-25] MEDS ORDERED: PROSCAR5 MG PO (09:40)
--- NOTE | 2016-09-25 10:00 | NUR ---
TLS DCD. VOICES NO CO AT TIME. PRESSURE HELD INSTRUCT NOT TO GET UP. AT BEDSIDE.
--- NOTE | 2016-09-25 10:13 | NUR ---
DC order rec'd. Met with patient and spouse at bedside. They are agreeable to home health for nursing & physical therapy. JACE signed for [facility].Questions answered. Referral faxed to [facility]. Questions answered.
--- NOTE | 2016-09-25 10:50 | NUR ---
DISCHARGED TO HOME WITH . NO QUESTIONS NOTED AT THIS TIME.
--- NOTE | 2016-09-25 11:30 | NUR ---
JOE spoke with Stefani Sierra's office - requested HH orders. Dr. Sierra requests clinical documentation - Faxed. Stefani states they will follow up with home health once Dr. Sierra has reviewed records.
== END 2016-09-25 12:25 | disposition home health service (06) | DRG 253 ==
LOC: D.SDCHOLD 05:00 → D.CVICU 05:00 → D.SDCHOLD 07:30 → D.CVICU 11:09
PROVIDERS: ADMIT Internal Medicine Cardiovascular Disease
PROC: 041K0JJ Bypass Right Femoral Artery to Left Femoral Artery with Synthetic Substitute, Open Approach (ICD-10-PCS; principal; 2016-09-19 07:30)
PROC: 0T9B70Z Drainage of Bladder with Drainage Device, Via Natural or Artificial Opening (ICD-10-PCS; 2016-09-23)
DX: I70.228 Atherosclerosis of native arteries of extremities with rest pain, other extremity (principal); I74.5 Embolism and thrombosis of iliac artery; F05 Delirium due to known physiological condition; G72.81 Critical illness myopathy; E11.9 Type 2 diabetes mellitus without complications; F03.90 Unspecified dementia, unspecified severity, without behavioral disturbance, psychotic disturbance, mood disturbance, and anxiety; G47.00 Insomnia, unspecified; G47.33 Obstructive sleep apnea (adult) (pediatric); I71.4 Abdominal aortic aneurysm, without rupture; I10 Essential (primary) hypertension; E78.5 Hyperlipidemia, unspecified; N39.490 Overflow incontinence

== ENCOUNTER 2016-11-16 07:32 | Outpatient (CLI) | payer MEDICARE, OTHER ==
--- NOTE | ~2016-11-16 | HEMODYNAMI ---
PATIENT:REINALDO NGUYEN MEDICAL RECORD: [id number] : 32 [id number] ADMISSION DATE: 11/16/16 Generatedon:11/17/201615:00 Patient name: REINALDO NGUYEN Patient #: [id number] SSN: : 1930 Date of study: 11/17/2016 Page: Of Hemodynamic Procedure Report Patient Data Patient Demographics Procedure consent was obtained First Name: REINALDO Gender: Male Last Name: WENDY : 1930 [facility] Initial: J Age: 86 year(s) Patient #: [id number] Race: Additional ID: [id number] Contact details Address: [address] [place] [address] State: [place] City: [place] Zip code: [address] Past Medical History Allergies Allergen Reaction Date Comments Reported Other allergy 11/17/2016 See chart. Admission Admission Data Admission Date: 11/16/2016 Admission Time: 8:37 [facility] Results Lab Result Date: 11/16/2016 Lab Result Time: 7:50 Biochemistry Name Units Result Min Max BUN mg/dl 10 --(-*--)-- 7 18 Creatinine mg/dl 1 --(--*-)-- 0.6 1.3 CBC Name Units Result Min Max Hematocrit % 40.6 -*(----)-- 42 54 Hemoglobin g/dl 13.6 --(*---)-- 13.5 17.5 Procedure Procedure Types Cath Procedure PCI Procedure Coronary Stent Initial PTCA Initial Miscellaneous Procedures Moderate Sedation up to 15 minutes Procedure Description Procedure Date Procedure Date: 11/17/2016 Procedure Start Time: 14:44 Procedure End Time: 14:57 Procedure Staff Name Function Johann Atwood MD Performing Physician Georgie Chen RT Scrub Kd Hill RN Nurse Bjorn Elias RT Monitor Gabriele Freeman RT Gunstock Repairer Procedure Data Cath Procedure Fluoroscopy Diagnostic fluoroscopy Total fluoroscopy Time: 2.2 time: 2.2 min min Diagnostic fluoroscopy Total fluoroscopy dose: 408 dose: 408 mGy mGy Contrast Material Contrast Material Type Amount (ml) Isovue 300 40 Entry Location Entry Primary Successful Side Size Upsize Upsize Entry Closure Morrison ccessful Closure Location (Fr) 1 (Fr) 2 (Fr) Remarks Device Remarks Radial Right 6 Fr Mechanical artery Short Compression Estimated blood loss: 10 ml Procedure Complications No complications Procedure Medications Medication Administration Route Dosage Oxygen NC 2 l/min Lidocaine 2% added to field 20 Heparin Flush Bag added to field 2 bags (1000units/500ml NS) 0.9% NaCl I.V. 100 ml/hr Plavix P.O. 75 mg Versed I.V. 1 mg Fentanyl I.V. 50 mcg Versed I.V. 1 mg Fentanyl I.V. 50 mcg Fentanyl I.V. 50 mcg Radial Cocktail I.A. 1 syringe (Verapomil 2mg/Nitro 400mcg/Heparin 1500units) Heparin Bolus I.V. 4000 units Hemodynamics Rest HGB: 13.6 (g/dl) Heart Rate: 65 (bpm) Snapshots Pre Cath Intra NCS Post Cath Vital Signs Time Heart Resp SPO2 NIBP (mmHg) Rhythm Pain Sedation Rate (ipm) (%) Status Level (bpm) 14:25:30 60 18 93 166/86(133) NSR 0 (11) 10(A) , No pain 14:29:55 65 21 95 161/86(97) NSR 0 (11) 10(A) , No pain 14:34:17 61 15 98 166/83(131) NSR 0 (11) 10(A) , No pain 14:38:31 60 13 96 145/94(128) NSR 0 (11) 10(A) , No pain 14:42:47 63 21 95 164/85(128) NSR 0 (11) 10(A) , No pain 14:47:13 67 19 97 151/76(126) NSR 0 (11) 9(A) , No pain 14:51:25 68 18 94 139/74(125) NSR 0 (11) 10(A) , No pain 14:55:10 69 14 95 143/80(104) NSR 0 (11) 10(A) , No pain Medications Time Medication Route Dose Verified Delivered Reason Note s Effectiveness by by 14:28:47 Plavix P.O. 75 mg Johann Yi for Rai Hill RN antiplatelet therapy 14:32:36 Oxygen NC 2 l/min Johann Buffie used for Rai Hill RN procedure 14:32:42 Lidocaine 2% added 20ml Johann Johann for local to vial Rai Atwood MD anesthetic field 14:32:51 Heparin Flush added 2 bags Johann Wills used for Bag to Rai Atwood MD procedure (1000units/500ml field NS) 14:32:59 0.9% NaCl I.V. 100 Johanngunnar Youngbloodie Per physician ml/hr Rai Hill RN 14:40:20 Versed I.V. 1 mg Johann Youngbloodie for sedation Rai Hill RN 14:40:26 Fentanyl I.V. 50 mcg Johann Youngbloodie for sedation Rai Hill RN 14:43:02 Versed I.V. 1 mg Johann Youngbloodie for sedation Rai Hill RN 14:43:07 Fentanyl I.V. 50 mcg Johann Yi for sedation Rai Hill RN 14:46:19 Fentanyl I.V. 50 mcg Johann Yi for sedation Rai Hill RN 14:46:34 Radial Cocktail I.A. 1 Johann Wills for (Verapomil syringe Rai Atwood MD vasodilation 2mg/Nitro 400mcg/Heparin 1500units) 14:47:39 Heparin Bolus I.V. 4000 Johann Yi for units Rai Hill RN anticoagulation Procedure Log Time Note 14:00:32 Gabriele Freeman RT(R) (CV) sent for patient. Start room use. 14:09:09 Informed consent obtained and on chart 14:09:30 Diagnostic Cath status Elective 14:09:32 Time tracking: Regular hours 14:09:35 Plan of Care:Hemodynamics will remain stable., Cardiac rhythm will remain stable., Comfort level will be maintained., Respiratory function will remain adequate., Patient/ family verbilizes understanding of procedure., Procedure tolerated without complication., Recovers from procedure without complications.. 14:13:35 Patient received from PCU to CCL 2 Alert and oriented. Tansferred to table in Supine position. 14:13:36 Warm blankets applied, and wilian hugger turned on for patient comfort. 14:13:36 Correct patient and procedure confirmed by team. 14:13:37 ECG and BP/O2 sat monitors applied to patient. 14:13:59 H&P Date Dictated: 11/16/2016 Within 30 days and on chart.. 14:14:00 Pre-procedure instructions explained to patient. 14:14:01 Pre-op teaching completed and patient verbalized understanding. 14:14:02 Family in patients room. 14:14:03 Patient NPO since Midnight. 14:24:19 Vital chart was started 14:28:47 Plavix 75 mg P.O. was administered by Kd Hill RN; for antiplatelet therapy; 14:32:08 Baseline sample Acquired. 14:32:11 Rhythm: sinus rhythm 14:32:24 Patient allergic to Other allergySee chart. 14:32:25 Is the patient allergic to Iodine/contrast media? No. 14:32:26 Is patient on blood thinner?Yes 14:32:29 ACC The patient was administered the following blood thiners within the last 24 hours: ACCPlavix 14:32:30 Patient diabetic? Yes. 14:32:31 If diabetic: On Metformin? Yes 14:32:33 If on Metformin: Last Dose? 11/15/2016 14:32:36 Oxygen 2 l/min NC was administered by Kd Hill RN; used for procedure; 14:32:36 Previous problem with sedation/anesthesia? No ? 14:32:37 Snore? Yes 14:32:38 Sleep apnea? Yes 14:32:38 Deviated septum? No 14:32:39 Opens mouth fully? Yes 14:32:40 Sticks out tongue? Yes 14:32:42 Lidocaine 2% 20ml vial added to field was administered by Johann Atwood MD; for local anesthetic; 14:32:42 Airway obstruction? No ? 14:32:43 Dentures? No ? 14:32:45 Modified Enrique's test Ulnar < 7 seconds 14:32:47 Patient pain scale 0/10 ?. 14:32:50 IV patent on arrival in left hand with 0.9% NaCl at [facility]. 14:32:51 Heparin Flush Bag (1000units/500ml NS) 2 bags added to field was administered by Johann Atwood MD; used for procedure; 14:32:59 0.9% NaCl 100 ml/hr I.V. was administered by Kd Hill RN; Per physician; 14:33:54 Lab Result : Creatinine 1 mg/dl 14:33:54 Lab Result : BUN 10 mg/dl 14:33:54 Lab Result : Hemoglobin 13.6 g/dl 14:33:54 Lab Result : Hematocrit 40.6 % 14:33:56 Lab results completed and on chart. 14:33:58 Right Radial & Right Groin area was prepped with chlora-prep and draped in sterile fashion 14:33:59 Alarms reviewed by R. N. 14:33:59 Sharps counted by scrub and verified by R.N. 14:34:03 Use device set Radial PCI 14:34:04 St Steven 260cm J .035 wire opened to sterile field. 14:34:05 MBrace Wrist Support opened to sterile field. 14:34:05 Tegaderm 4 x 4 opened to sterile field. 14:34:06 Acist Manifold opened to sterile field. 14:34:06 Acist Syringe opened to sterile field. 14:34:07 Acist Hand Control opened to sterile field. 14:34:07 Bag Decanter opened to sterile field. 14:34:07 Medline Cath Pack opened to sterile field. 14:34:08 Merit BasixCompak Inflation Kit opened to sterile field. 14:34:08 Terumo 6Fr Slender Glidesheath opened to sterile field. 14:34:12 Logan Whisper J 300cm 0.014 guide wire opened to sterile field. 14:35:24 Zero performed for pressure channel P1 14:35:50 Zero performed for pressure channel P1 14:35:54 Zero performed for pressure channel P1 14:39:27 Physician arrived 14:39:28 --------ALL STOP TIME OUT------ 14:39:28 Final Timeout: patient, procedure, and site verified with staff and physician. All members of the team are in agreement. 14:39:29 Right Radial & Right Groin site verified by team. 14:39:32 Physical assessment completed. ASA score P 2 - A patient with mild systemic disease as per Johann Atwood MD. 14:39:36 Sedation plan: IV Moderate Sedation Versed, Fentanyl 14:39:57 IV Extension Set opened to sterile field. 14:40:20 Versed 1 mg I.V. was administered by Kd Hill RN; for sedation; 14:40:26 Fentanyl 50 mcg I.V. was administered by Kd Hill RN; for sedation; 14:42:58 Cordis 6FR XBLAD 3.5 guide catheter opened to sterile field. 14:43:02 Versed 1 mg I.V. was administered by Kd Hill RN; for sedation; 14:43:07 Fentanyl 50 mcg I.V. was administered by Kd Hill RN; for sedation; 14:44:44 Procedure started. 14:44:44 Full Disclosure recording started 14:44:47 Local anesthetic to right radial artery with Lidocaine 2% by Johann Atwood MD.INITIAL ACCESS ONLY 14:45:03 A 6 Fr Short sheath was inserted into the Right Radial artery 14:46:14 6 Fr xblad 3.5 guide catheter was inserted over the wire 14:46:19 Fentanyl 50 mcg I.V. was administered by Kd Hill RN; for sedation; 14:46:34 Radial Cocktail (Verapomil 2mg/Nitro 400mcg/Heparin 1500units) 1 syringe I.A. was administered by Johann Atwood MD; for vasodilation; 14:47:39 Heparin Bolus 4000 units I.V. was administered by Kd Hill RN; for anticoagulation; 14:50:06 whisper wire advanced. 14:50:08 Wire advanced across lesion. 14:50:32 Inflation Number: 1 A Dipesh OTW 3.0 x 08 stent was prepped and advanced across the Prox LAD. The stent was deployed at 12 DALE for 0:10 (min:sec). 14:50:59 Wire redirected to CX. 14:51:16 Inflation number: 1 The stent balloon was then re-inflated across the Prox CX to 17 DALE for 0:10 (min:sec). 14:51:18 Stent catheter was removed intact over wire. 14:51:18 Wire removed. 14:51:18 Guide catheter removed. 14:51:27 Terumo TR Band Large opened to sterile field. 14:51:35 Sheath removed intact; hemostasis achieved with Mechanical Compression to the Right Radial artery. 14:51:36 Procedure ended.(Physican Out) 14:54:23 Fluoroscopy time 02.20 minutes. 14:54:27 Flurop Dose total: 408 14:54:27 Fluoroscopy dose: 408 mGy 14:54:29 Contrast amount:Isovue 300 40ml. 14:54:30 Sharps counted by scrub and verified by R.N. 14:54:33 TR band inflated with 11cc of air. 14:54:34 Insertion/operative site no bleeding no hematoma. 14:54:39 Post right radial artery:stable, soft, clean and dry 14:54:40 Post Procedure Pulses reassessed and unchanged 14:54:42 Post-procedure physical assessment completed. ASA score P 2 - A patient with mild systemic disease as per Johann Atwood MD. 14:54:45 Post procedure rhythm: unchanged. 14:54:47 Estimated blood loss: 10 ml 14:54:50 Post procedure instruction explained to patient.Patient verbalizes understanding. 14:54:52 Patient needs reinforcement of post procedure teaching. 14:55:10 Procedure type changed to Cath procedure, PCI procedure, Coronary Stent Initial, PTCA Initial, Miscellaneous Procedures, Moderate Sedation up to 15 minutes 14:57:29 Procedure and supply charges have been captured, reviewed, submitted and are correct. 14:57:32 Procedure Complication : No complications 14:57:34 Vital chart was stopped 14:57:34 See physician's report for complete and final results. 14:57:49 Report given to PCU. 14:57:56 Patient transfered to PCU with Stretcher. 14:57:59 Procedure ended. 14:57:59 Full Disclosure recording stopped 14:58:19 End room use (Document Last) Intervention Summary Intervention Notes Time ActionType Lesion and Equipment Action# Pressure Duration Attributes Used 14:50:32 Place stent Prox LAD [place] OTW 1 12 00:10 3.0 x 08 stent 14:51:16 Reinflate Prox CX Dipesh OTW 1 17 00:10 stent 3.0 x 08 balloon stent Device Usage Item Name Manufacture Quantity Catalog Hospital Part Current Minima l Lot# / Number Charge Number Stock Stock Serial# Code St Steven St Steven 1 [id number] 213818 369360 399722 30 260cm J .035 wire MBrace Advanced 1 140-0250-00 537655 81833 305699 5 Wrist Vascular Support Dynamics Tegaderm 4 3M 1 1626W 258356 242803 803852 5 x 4 Acist Acist 1 53851 259587 581471 960093 5 Metrum [place] Acist Acist 1 04067 136495 947699 829390 20 Syringe Medical Systems Inc Acist Hand Acist 1 70827 613558 424392 630145 5 Control Medical Systems Inc Bag Microtek 1 2002S 066430 25204 636879 5 Decanter Medical Inc. Medline Cardinal 1 [id number] 159339 10339 704372 5 [facility] 1 [id number] 661935 643015 023940 15 BasixCompak Medical Inflation Kit Terumo 6Fr Terumo 1 [id number] 011195 365323 487991 40 Slender Glidesheath Logan Logan 1 [id number] 660296 133185 651768 5 Whisper J Vascular 300cm 0.014 guide wire IV Hospira 1 20886-44 939697 07609 580415 5 Extension Set Cordis 6FR Cardinal 1 [id number] 091815 823530 956398 10 XBLAD 3.5 Health guide catheter [place] OTW Medtronic 1 [id number] 992685 2503543 510925 5 [id number] 3.0 x 08 stent Terumo TR Terumo 1 [id number] 717417 603869 142526 40 Band Large Signature Audit [place] Stage Time Signature Unsigned Intra-Procedure 11/17/2016 Bjorn Elias 2:59:55 PM RT(R) Signatures Monitor : Bjorn Elias RT Signature : Date : Time : [facility] [address] [place] [address]
--- NOTE | ~2016-11-16 | HEMODYNAMI ---
PATIENT:REINALDO NGUYEN MEDICAL RECORD: [id number] : 32 LOCATION:[place] [address] ADMISSION DATE: 11/16/16 Generatedon:11/16/201613:09 Patient name: REINALDO NGUYEN Patient #: [id number] SSN: : 1930 Date of study: 11/16/2016 Page: Of Hemodynamic Procedure Report Patient Data Patient Demographics Procedure consent was obtained First Name: REINALDO Gender: Male Last Name: WENDY : 1930 Middle Initial: J Age: 86 year(s) Patient #: [id number] Race: Additional ID: [id number] Contact details Address: [address] [place] [address] State: [place] City: [place] Zip code: [address] Admission Admission Data Admission Date: 11/16/2016 Admission Time: 8:37 Room #: [facility] Procedure Procedure Types Cath Procedure Diagnostic Procedure LHC LHC w/Coronaries w/Grafts FFR/IVUS Intra-Coronary IVUS Initial PCI Procedure Coronary Stent Initial Miscellaneous Procedures Moderate Sedation up to 30 minutes Procedure Description Procedure Date Procedure Date: 11/16/2016 Procedure Start Time: 12:42 Procedure End Time: 13:08 Procedure Staff Name Function Johann Atwood MD Performing Physician Marine Perdomo RT Scrub Georgie Chen RT Monitor Karlos Ludwig RN Nurse Procedure Data Cath Procedure Fluoroscopy Diagnostic fluoroscopy Total fluoroscopy Time: 5.5 time: 5.5 min min Diagnostic fluoroscopy Total fluoroscopy dose: dose: 4778 mGy 4778 mGy Contrast Material Contrast Material Type Amount (ml) Isovue 300 104 Entry Location Entry Primary Successful Side Size Upsize Upsize Entry Closure Succes sful Closure Location (Fr) 1 (Fr) 2 (Fr) Remarks Device Remarks Femoral Right 5 Fr 6 Fr Exoseal artery Short Estimated blood loss: 10 ml Diagnostic catheters Device Type Used For End Catheter Placement Cordis 5Fr Pigtail LV Angiography Catheter (MP) Cordis 5Fr JL 4.0 Left Coronary Catheter (MP) Angiography Cordis 5Fr 3DRC Catheter Internal mammary (MP) arteriography Cordis 5Fr 3DRC Catheter Right Coronary (MP) Angiography Procedure Complications No complications Procedure Medications Medication Administration Route Dosage Oxygen NC 2 l/min Heparin Flush Bag added to field 2 bags (1000units/500ml NS) 0.9% NaCl I.V. 100 ml/hr Plavix P.O. 75 mg Fentanyl I.V. 50 mcg Versed I.V. 1 mg Fentanyl I.V. 50 mcg Versed I.V. 1 mg Fentanyl I.V. 50 mcg Fentanyl I.V. 50 mcg Hemodynamics Rest Heart Rate: 60 (bpm) Snapshots Pre Cath Intra NCS Post Cath Vital Signs Time Heart Resp SPO2 NIBP (mmHg) Rhythm Pain Sedation Rate (ipm) (%) Status Level (bpm) 12:20:54 69 16 100 170/92(131) NSR 0 (11) 10(A) , No pain 12:25:22 71 17 100 170/82(130) NSR 0 (11) 10(A) , No pain 12:29:46 62 19 100 166/82(115) NSR 0 (11) 10(A) , No pain 12:34:12 58 17 100 163/75(144) NSR 0 (11) 10(A) , No pain 12:38:34 61 17 100 158/74(133) NSR 0 (11) 10(A) , No pain 12:42:53 59 19 100 145/77(126) NSR 0 (11) 9(A) , No pain 12:47:11 61 17 100 162/88(132) NSR 0 (11) 9(A) , No pain 12:51:35 60 17 100 148/74(122) NSR 0 (11) 9(A) , No pain 12:55:57 64 17 98 151/77(124) NSR 0 (11) 9(A) , No pain 13:00:21 74 16 99 158/79(122) NSR 0 (11) 9(A) , No pain 13:04:39 72 19 100 143/77(122) NSR 0 (11) 9(A) , No pain 13:08:57 68 11 100 152/83(122) NSR 0 (11) 9(A) , No pain Medications Time Medication Route Dose Verified Delivered Reason Notes Ef fectiveness by by 12:22:00 Oxygen NC 2 Johann Karlos Per l/min Rai Ludwig RN physician 12:22:12 Heparin Flush added 2 Johann Karlos used for Bag to bags Rai Ludwig RN procedure (1000units/500ml field NS) 12:22:22 0.9% NaCl I.V. 100 Johann Karlos Per ml/hr Rai Ludwig RN physician 12:28:08 Plavix P.O. 75 mg Johann Sarmientoy for Rai Ludwig RN antiplatelet therapy 12:35:09 Fentanyl I.V. 50 Johann Karlos for sedation mcg Rai Ludwig RN 12:35:18 Versed I.V. 1 mg Johann Karlos for sedation Rai Ludwig RN 12:41:31 Fentanyl I.V. 50 Johann Karlos for sedation mcg Rai Ludwig RN 12:41:36 Versed I.V. 1 mg Johann Karlos for sedation Rai Ludwig RN 12:47:01 Fentanyl I.V. 50 Johann Karlos for sedation mcg Rai Ludwig RN 12:47:06 Fentanyl I.V. 50 Johann Karlos for sedation mcg Rai Ludwig RN Procedure Log Time Note 11:50:33 Georgie Counts RT(R) sent for patient. Start room use. 11:53:54 Time tracking: Regular hours 11:53:58 Plan of Care:Hemodynamics will remain stable., Cardiac rhythm will remain stable., Comfort level will be maintained., Respiratory function will remain adequate., Patient/ family verbilizes understanding of procedure., Procedure tolerated without complication., Recovers from procedure without complications.. 12:08:56 Patient received from Med II to CCL 3 Alert and oriented. Tansferred to table in Supine position. 12:08:58 Warm blankets applied, and wilian hugger turned on for patient comfort. 12:08:58 Correct patient and procedure confirmed by team. 12:09:00 Signed procedure consent form obtained from patient. 12:09:01 ECG and BP/O2 sat monitors applied to patient. 12:19:40 Full Disclosure recording started 12:19:41 Vital chart was started 12:19:45 Rhythm: 1st degree heart block 12:22:00 Oxygen 2 l/min NC was administered by Karlos Ludwig RN; Per physician; 12:22:12 Heparin Flush Bag (1000units/500ml NS) 2 bags added to field was administered by Karlos Ludwig RN; used for procedure; 12:: 0.9% NaCl 100 ml/hr I.V. was administered by Karlos Ludwig RN; Per physician; 12:22:53 H&P Date Dictated: 11/16/2016 Within 30 days and on chart.. 12::55 Pre-procedure instructions explained to patient. 12::55 Pre-op teaching completed and patient verbalized understanding. 12:22:56 Family in patients room. 12:23:03 Patient NPO since Midnight. 12:23:15 Is the patient allergic to Iodine/contrast media? No. 12:23:50 Is patient on blood thinner?Yes 12:23:54 ACC The patient was administered the following blood thiners within the last 24 hours: ACCPlavix 12:23:56 Patient diabetic? Yes. 12:23:57 If diabetic: On Metformin? Yes 12:23:59 If on Metformin: Last Dose? 11/15/2016 12:24:02 Previous problem with sedation/anesthesia? No ? 12:24:04 Snore? Yes 12:24:05 Sleep apnea? No 12:24:06 Deviated septum? No 12:24:09 Opens mouth fully? Yes 12:24:10 Sticks out tongue? Yes 12:24:14 Airway obstruction? No ? 12:24:17 Dentures? No ? 12:24:21 Pre procedure: right dorsailis pedis pulse 2+ Normal; easily identifiable; not easily obliterated 12:24:23 Patient pain scale 0/10 ?. 12:24:28 IV patent on arrival in left hand with 0.9% NaCl at KVO. 12:24:31 Lab results completed and on chart. 12:24:39 Right groin area was prepped with chlora-prep and draped in sterile fashion 12:24:40 Alarms reviewed by R. N. 12:24:40 Sharps counted by scrub and verified by R.N. 12:24:43 Use device set Femoral Dx 12:24:44 Acist Syringe opened to sterile field. 12:24:44 Bag Decanter opened to sterile field. 12:24:45 Medline Cath Pack opened to sterile field. 12:24:45 Terumo 5Fr Wright Sheath opened to sterile field. 12:24:45 St Steven 260cm J .035 wire opened to sterile field. 12:24:47 Acist Hand Control opened to sterile field. 12:24:47 Acist Manifold opened to sterile field. 12:24:47 Diagnostic Infinity 5Fr Multipack catheter opened to sterile field. 12:24:48 Tegaderm 4 x 4 opened to sterile field. 12::42 Zero performed for pressure channel P1 12:28:08 Plavix 75 mg P.O. was administered by Karlos Ludwig RN; for antiplatelet therapy; 12::24 Baseline sample Acquired. 12::44 PERCUTANEOUS ENTRY 19GA needle opened to sterile field. 12:33:23 Final Timeout: patient, procedure, and site verified with staff and physician. All members of the team are in agreement. 12:33:25 Right groin site verified by team. 12:33:28 Physical assessment completed. ASA score P 2 - A patient with mild systemic disease as per Johann Atwood MD. 12:33:31 Sedation plan: IV Moderate Sedation Versed, Fentanyl 12:35:09 Fentanyl 50 mcg I.V. was administered by Karlos Ludwig RN; for sedation; 12:35:18 Versed 1 mg I.V. was administered by Karlos Ludwig RN; for sedation; 12:41:31 Fentanyl 50 mcg I.V. was administered by Karlos Ludwig RN; for sedation; 12:41:36 Versed 1 mg I.V. was administered by Karlos Ludwig RN; for sedation; 12:42:25 Procedure started. 12:42:30 Local anesthetic to right femoral artery with Lidocaine 2% by Johann Atwood MD.INITIAL ACCESS ONLY 12:45:53 A 5 Fr sheath was inserted into the Right Femoral artery 12:47:01 Fentanyl 50 mcg I.V. was administered by Karlos Ludwig RN; for sedation; 12:47:06 Fentanyl 50 mcg I.V. was administered by Karlos Ludwig RN; for sedation; 12:48:08 A Cordis 5Fr Pigtail Catheter (MP) was advanced over the wire and used for LV Angiography. 12:48:28 LV gram done using VEGA 12:48:32 EF : 40 % 12:48:35 Injector settings: Ml/sec: 10, Volume: 20, 12:48:36 Catheter removed. 12:48:42 A Cordis 5Fr JL 4.0 Catheter (MP) was advanced over the wire and used for Left Coronary Angiography. 12:50:15 Catheter removed. 12:50:30 Terumo 6Fr Wright Sheath opened to sterile field. 12:50:31 Gorbisper J 300cm 0.014 guide wire opened to sterile field. 12:50:31 Pharmacopeia BasixCompak Inflation Kit opened to sterile field. 12:50:51 A Cordis 5Fr 3DRC Catheter (MP) was advanced over the wire and used for Internal mammary arteriography.to LAD 12:51:28 A Cordis 5Fr 3DRC Catheter (MP) was advanced over the wire and used for Right Coronary Angiography. 12:53:32 GiveNexttronic Launcher 6Fr AR 2.0 guide catheter opened to sterile field. 12:53:38 TrustedPlaces [place] IVUS Catheter opened to sterile field. 12:54:47 Sheath upsized to a 6 Fr Short. 12:54:57 6 Fr AR 2.0 guide catheter was inserted over the wire 12:55:12 Whisper wire advanced. 12:55:31 IVUS catheter advanced over wire. 12:55:34 IVUS pass to RCA lesion performed. 12:56:53 IVUS catheter removed over wire. 12:59:00 Inflation Number: 1 A Thatcher RX 4.0 x 12 stent was prepped and advanced across the Prox RCA. The stent was deployed at 15 DALE for 0:12 (min:sec). 12:59:15 Inflation number: 2 The stent balloon was then re-inflated across the Prox RCA to 15 DALE for 0:03 (min:sec). 12:59:27 Inflation number: 3 The stent balloon was then re-inflated across the Prox RCA to 15 DALE for 0:07 (min:sec). 12:59:39 Inflation number: 4 The stent balloon was then re-inflated across the Prox RCA to 15 DALE for 0:02 (min:sec). 13:00:10 Stent catheter was removed intact over wire. 13:00:11 Wire removed. 13:00:11 Guide catheter removed. 13:00:52 Sheath removed intact; hemostasis achieved with Exoseal to the Right Femoral artery. 13:00:55 Procedure ended.(Physican Out) 13:02:39 Fluoroscopy time 05.50 minutes. 13:02:47 Flurop Dose total: 4778 13:02:47 Fluoroscopy dose: 4778 mGy 13:02:54 Contrast amount:Isovue 300 104ml. 13:02:56 Sharps counted by scrub and verified by R.N. 13:02:57 Insertion/operative site no bleeding no hematoma. 13:03:00 Post-op/insertion site Right Femoral artery dressed using a 4 x 4 and Tegaderm. 13:03:03 Post right femoral artery:stable, clean and dry 13:03:05 Post Procedure Pulses reassessed and unchanged 13:03:07 Post-procedure physical assessment completed. ASA score P 2 - A patient with mild systemic disease as per Johann Atwood MD. 13:03:09 Post procedure rhythm: unchanged. 13:03:11 Estimated blood loss: 10 ml 13:03:13 Post procedure instruction explained to patient.Patient verbalizes understanding. 13:03:14 Patient needs reinforcement of post procedure teaching. 13:03:15 Procedure and supply charges have been captured, reviewed, submitted and are correct. 13:03:36 Procedure type changed to Cath procedure, Diagnostic procedure, LHC, LHC w/Coronaries w/Grafts, FFR/IVUS, Intra-Coronary IVUS Initial, PCI procedure, Coronary Stent Initial, Miscellaneous Procedures, Moderate Sedation up to 30 minutes 13:03:41 Procedure Complication : No complications 13:03:43 See physician's report for complete and final results. 13:04:01 Cordis 6Fr Exoseal opened to sterile field. 13:08:31 Vital chart was stopped 13:08:33 Report given to PCU. 13:08:36 Patient transfered to PCU with Bed. 13:08:50 Procedure ended. 13:08:50 Full Disclosure recording stopped 13:08:57 End room use (Document Last) Intervention Summary Intervention Notes Time ActionType Lesion and Equipment Action# Pressure Duration Attributes Used 12:59:00 Place stent Prox RCA Thatcher RX 1 15 00:12 4.0 x 12 stent 12:59:15 Reinflate Prox RCA Dipesh RX 2 15 00:03 stent 4.0 x 12 balloon stent 12:59:27 Reinflate Prox RCA Thatcher RX 3 15 00:07 stent 4.0 x 12 balloon stent 12:59:39 Reinflate Prox RCA Thatcher RX 4 15 00:02 stent 4.0 x 12 balloon stent Device Usage Item Name Manufacture Quantity Catalog Number Hospital Part Current Min imal Lot# / Charge Number Stock Stock Serial# Code Acist Acist 1 43374 179602 057950 241421 20 Syringe Medical Systems Inc Bag Decanter Microtek 1 2002S 725346 84448 287824 5 Medical Inc. Medline Cath Cardinal 1 [id number] 326840 72349 831405 5 Pack Health Terumo 5Fr Terumo 1 ARM222 828358 941841 343552 [address] Steven 1 071165 907641 658116 254102 30 260cm J .035 wire Acist Hand Acist 1 83825 073720 754589 669566 5 Control Medical Systems Inc Acist Acist 1 28216 657097 702925 569621 5 Estate Assist Medical Systems Inc Diagnostic Cardinal 1 [id number] 065977 50167 280437 30 Infinity 5Fr Health Multipack catheter Tegaderm 4 x 3M 1 1626W 771080 585135 941267 5 4 PERCUTANEOUS [facility] 1 W65305 798935 203040 5 ENTRY 19GA needle Cordis 5Fr Cardinal 1 111481 5 Pigtail Health Catheter (MP) Cordis 5Fr Cardinal 1 725794 5 JL 4.0 Health Catheter (MP) Terumo 6Fr Terumo 1 AHH892 175067 334737 039687 40 Wright Sheath Logan Logan 1 [id number] 170796 896343 147654 5 isper J Vascular 300cm 0.014 guide wire Merit Merit 1 WQ7610 034474 087808 157198 15 Medingo [employer] Medical Inflation Kit Cordis 5Fr Cardinal 1 567363 5 3DRC Health Catheter (MP) Medtronic Medtronic 1 [id number] 640039 57313 098101 1 Launcher 6Fr AR 2.0 guide catheter [place] 1 [id number] 981173 436402 351763 8 [place] IVUS Catheter Thatcher RX 4.0 Medtronic 1 [id number] 255675 3219016 214169 5 [id number] x 12 stent Cordis 6Fr Cardinal 1 EX600 239015 304975 923482 10 Exoseal Health Signature Audit [place] Stage Time Signature Unsigned Intra-Procedure 11/16/2016 Georgie 1:09:09 PM Counts RT(R) Signatures Monitor : Georgie Signature : Counts RT Date : Time : [address] [place] [address]
[~2016-11-16 07:32] MED LIST changes: +ARICEPT5 MG PO; +DOXEPIN HCL10 MG PO; +ELAVIL25 MG PO; +FLOMAX0.4 MG PO; +K-DUR20 MEQ PO; +PLAVIX75 MG PO; +PRAVACHOL80 MG PO; +PROSCAR5 MG PO
[2016-11-16 08:07] LABS: BASOPHILS 0.2 % (0-2); EOSINOPHILS 3.1 % (0-7); HEMATOCRIT 40.6 % (42.0-54.0); HEMOGLOBIN 13.6 g/dL (13.5-17.5); IMMATURE GRANULOCYTES 0.2 % (0-5); LYMPHOCYTES 37.8 % (15-50); MCHC 33.5 g/dL (31.0-37.0); MCV 92.5 fL (80.0-100.0); MEAN PLATELET VOLUME 10.6 fL (7.4-10.4); MONOCYTES 13.7 % (2-11); PLATELET COUNT 114 10x3/uL (130-400); RBC 4.39 10x6/uL (4.20-6.10); WBC 4.5 10x3/uL (4.8-10.8)
[2016-11-16 08:54] LABS: ALBUMIN 3.1 g/dL (3.4-5.0); ALKALINE PHOSPHATASE 67 U/L (46-116); ALT (SGPT) 21 U/L (10-68); BILIRUBIN - TOTAL 0.51 mg/dL (0.2-1.3); CALC OSMOLALITY 272 mosm/kg (275-300); CALCIUM 8.4 mg/dL (8.5-10.1); CARBON DIOXIDE 25.1 mmol/L (21.0-32.0); CHLORIDE - SERUM 105 mmol/L (98-107); GLUCOSE 99 mg/dL (74-106); POTASSIUM - SERUM 4.2 mmol/L (3.5-5.1); PROTEIN - SERUM 6.8 g/dL (6.4-8.2); SODIUM 137 mmol/L (136-145); UREA NITROGEN 10 mg/dL (7-18); eGFR NON AFRICAN AMERICAN 75 mL/min (90-120)
[2016-11-16 09:01] LABS: CKMB 0.2 U/L (0.0-3.6); CREATINE KINASE 46 UL (21-232)
[2016-11-16 09:04] LABS: TROPONIN-I < 0.017 ng/mL (0.000-0.060)
--- NOTE | 2016-11-16 09:49 | NUR ---
TRANSFER FROM ER BY STRETCHER. OREINTED TO ROOM. CALL LIGHT IN REACH. WILL CONT. PLAN OF CARE.
[2016-11-16 10:02] VITALS: BP 145/78; BMI 31.2
[2016-11-16] MEDS ORDERED: PROTONIX40 MG PO (10:13)
[2016-11-16] MEDS ORDERED: NEURONTIN600 MG PO (10:14)
[2016-11-16] MEDS ORDERED: CARAFATE1 G/10 ML PO (10:14)
--- NOTE | 2016-11-16 12:16 | NUR ---
PRE-OPS GIVEN. TO CULINARY INSTRUCTOR BY BED.
--- NOTE | 2016-11-16 13:32 | NUR ---
BACK FROM LAST PATTERN GRADER. VS WNL. RIGHT GROIN STABLE WITHOUT BLEEDING OR HEMATOMA NOTED. WILL MONITOR.
[2016-11-16 15:37] VITALS: BP 139/71
--- NOTE | 2016-11-16 17:04 | NUR ---
BED REST UP. GROIN STABLE.
--- NOTE | 2016-11-16 19:33 | NUR ---
RESUMED CARE OF PT, LYING IN BED RESPIRATIONS EVEN AND UNLABORED ON ROOM AIR. RIGHT GROIN CATH SITE C/D/I, PEDAL PULSE PALPABLE. 64 SR ON TELEMETRY. PLAN OF CARE DISCUSSED. CALL LIGHT IN REACH. WILL CONTINUE TO MONTIOR. SEE NURSE ASSESSMENT.
--- NOTE | 2016-11-16 20:10 | NUR ---
NITRO TAB GIVEN FOR CHEST PAIN 6:10. VSS, SR ON TELEMETRY. WILL CONTINUE TO MONITOR.
[2016-11-16 20:19] VITALS: BP 139/79
--- NOTE | 2016-11-16 20:40 | NUR ---
REASSESSMENT OF PAIN, 2:10. WILL CONTINUE TO MONITOR.
--- NOTE | 2016-11-16 21:29 | NUR ---
DR. HARDY PAGED FOR CONTINUED CHEST PAIN AFTER NITRO GIVEN. SEE NEW ORDERS
--- NOTE | 2016-11-17 03:41 | NUR ---
CALL LIGHT IN REACH, WILL CONTINUE WITH PLAN OF CARE.
[2016-11-17 04:44] VITALS: BP 135/76
--- NOTE | 2016-11-17 05:15 | NUR ---
CONSENTS OBTAINED, REMAINS NPO. WILL CONTINUE TO MONITOR. CALL LIGHT IN REACH.
[2016-11-17 08:46] VITALS: BP 137/83
[2016-11-17 12:12] VITALS: BP 134/71
--- NOTE | 2016-11-17 13:09 | OP ---
PATIENT NAME: REINALDO NGUYEN MEDICAL RECORD: [id number] :31 LOCATION:D.M2 D.2115 ADMISSION DATE:11/16/16 SURGEON: MCKENZIE HARDY MD DATE OF OPERATION: 11/16/2016 PROCEDURES: 1. PTCA and stent, RCA. 2. Intravascular ultrasound. 3. Left heart catheterization. 4. Selective coronary angiography. 5. Vein graft angiography. 6. VARGHESE angiography. 7. Left ventriculogram. INDICATION: Angina and coronary artery disease. PROCEDURE IN DETAIL: After informed consent was obtained and after detailed explanation of risks and benefits as well as alternative therapies, the patient elected to proceed with angiogram and angioplasty. The right femoral area was prepped and draped in normal sterile fashion. The right femoral artery was cannulated via modified Seldinger technique with placement of 6-Portuguese sheath. All catheters were exchanged through this sheath. FINDINGS: The left ventriculogram was performed in standard 30-degree VEGA view, reveals good cardiac wall motion throughout all segments. Overall ejection fraction estimated at 60%. SELECTIVE CORONARY ANGIOGRAPHY: 1. Left main shows no significant angiographic disease. 2. Left anterior descending has 80+ percent stenosis at the ostium. This leads into nongrafted diagonal systems. The LAD in the mid vessel is totally occluded. 3. VARGHESE to LAD is widely patent. Distal LAD is widely patent. 4. Left circumflex is widely patent. Previously placed stents are patent. 5. Right coronary has previously placed stents. There is a greater than 80% stenosis, confirmed by intravascular ultrasound at the ostium as well as in the mid vessel. 6. Vein graft to left circumflex and RCA are closed. PTCA AND STENT OF THE RCA: Stent used was 4.0 x 12-mm Dipesh in the ostium. The mid vessel was with in-stent restenosis and 4.0 balloon was used there to 21 atmospheres. Result was 0% residual stenosis. OVERALL IMPRESSION: Successful PTCA and stent of the RCA, going from 80% initial stenosis to 0% residual. PLAN: PTCA and stent of the proximal LAD ____ nongrafted diagonals in the near future. TRANSINT:[id number] Voice Confirmation ID: [id number] DOCUMENT ID: [id number] OPERATIVE REPORT [id number] REINALDO NGUYEN MCKENZIE HARDY MD at 1309 CC: [id number] DICTATION DATE: 11/16/16 1304 LOGISTICIAN: 11/16/16 1359 ADM IN [facility] [address] [place] [id number]
--- NOTE | 2016-11-17 13:09 | HP ---
PATIENT: REINALDO ANDERSON MEDICAL RECORD: [id number] ACCOUNT: [id number] LOCATION:[address] : [birth year] ADMISSION DATE: 11/16/16 HISTORY AND PHYSICAL EXAMINATION DIAGNOSES: 1. Angina. 2. Coronary artery disease. 3. Previous PTCA and stent. 4. Hypertension. 5. Hyperlipidemia. HISTORY OF PRESENT ILLNESS: Mr. Anderson presents with increasing episodes of chest pain, chest discomfort compatible with angina for the past 2 weeks, just like his previous angina. He has multivessel PTCA and stent and CABG in the past. Last stent was approximately 2 years ago. PHYSICAL EXAMINATION: GENERAL APPEARANCE: Well-nourished, well-developed, appears stated age. Level of distress, comfortable. PSYCHIATRIC: Mental status, alert, normal affect. Orientation, oriented to time, place and person. EYES: Lids and conjunctiva, noninjected. No discharge, no pallor. ENT: Lips, teeth, gums, normal dentition. Oropharynx, no cyanosis, no pallor. NECK: Carotid arteries, bilateral normal upstroke, no bruits, no thrills. JUGULAR VEINS: No jugular venous pressure or distention. CERVICAL LYMPH NODES: Nontender, nonenlarged. THYROID: Not enlarged. Nontender. No nodules. LUNGS: Respiratory effort, unlabored. CHEST: Normal curvature. No thoracic deformity. No chest wall tenderness. Percussion, resonant. Auscultation, clear. No wheezes, no rales, no rhonchi. CARDIOVASCULAR: Precordial exam, nondisplaced. No heaves or pericardial thrills. Rate and rhythm, regular. Heart sounds, normal S1, normal S2. No S3, no gallop, no rub. Systolic murmur, not heard. Diastolic murmur, not heard. EXTREMITIES: No cyanosis, no edema. Peripheral pulses, full and equal in all extremities, except as noted. No bruits appreciated. ABDOMEN: Soft, nondistended. Normal aorta. No bruit. Nontender. No masses. Liver, nontender, no hepatomegaly. Spleen, nontender, no splenomegaly. MUSCULOSKELETAL: No joint tenderness. No joint swelling. No erythema. NEUROLOGICAL: Normal gait, normal strength, normal tone. SKIN: Warm and dry. REVIEW OF SYSTEMS: The patient reports easy bruising but reports no swollen glands. The patient reports no fever, no night sweats, no significant weight gain, no significant weight loss. No significant exercise tolerance. The patient reports no dry eyes, no irritation, no vision change. Patient reports no difficulty hearing and no ear pain. Patient reports no frequent nose bleeds or nose and sinus problems. Patient reports on arm pain on exertion. No shortness of breath while lying down. No history of heart murmur. Patient reports no cough, no wheezing or coughing up blood. Patient reports no abdominal pain, no vomiting. Normal appetite. No diarrhea and not vomiting blood. No nausea and no constipation. Patient reports no incontinence. No difficulty urinating. No hematuria. No increased frequency. Patient reports no muscle aches. No weakness, no arthralgias, no back pain. No swelling of the extremities. Patient reports no abnormal mole, no jaundice, no rashes. Reports HISTORY AND PHYSICAL [id number] REINALDO ANDERSON no loss of consciousness. No weakness and no numbness. No seizures, dizziness, or headaches. The patient reports no depression, no sleep disturbance, feeling safe in a relationship and no alcohol abuse. Patient reports on fatigue. Reports no runny nose or sinus pressure. No itching, no hives, and no frequent sneezing. OVERALL IMPRESSION: Chest pain compatible with angina, most likely he has hemodynamically significant coronary artery disease that is recurrent. We will proceed with coronary angiography. Further care depends on the findings of the angiography. TRANSINT:[id number] Voice Confirmation ID: [id number] DOCUMENT ID: [id number] MCKENZIE HARDY MD at 1309 CC: [id number] DICTATION DATE: 11/16/16837 SAFETY AND SECURITY MANAGER: 11/16/16 09 [facility] [place] [id number] [place] [id number]
--- NOTE | 2016-11-17 14:07 | NUR ---
PRE-OPS GIVEN. TO BUSINESS CHANGE MANAGER BY BED.
[2016-11-17 14:21] VITALS: BMI 31.1
--- NOTE | 2016-11-17 15:25 | NUR ---
BACK FROM CHIEF TECHNOLOGIST. VS WNL. RIGHT WRIST STABLE WITH TR BAND INTACT. WILL MONITOR.
[2016-11-17 15:34] VITALS: BP 138/71
--- NOTE | 2016-11-17 19:34 | NUR ---
TR BAND REMOVED FRM RIGHT WRIST, NO BLEEDING OR SWELLING NOTED, NO HEMATOMA NOTED. DISCHARGE INSTRUCTIONS AND PLAVIX PRESCRIPTION GIVEN. LEAVING BY W/C WITH AT PTS SIDE, TO [facility].
--- NOTE | 2016-12-08 16:56 | OP ---
PATIENT NAME: REINALDO NGUYEN MEDICAL RECORD: [id number] :32 LOCATION:D.OPS ADMISSION DATE: SURGEON: MCKENZIE HARDY MD DATE OF OPERATION: 11/17/2016 DATE OF SERVICE: 11/17/2016 PROCEDURES: 1. PTCA stent LAD. 2. Selective coronary angiography. 3. PTCA left circumflex. INDICATION: Angina, coronary artery disease. PROCEDURE IN DETAIL: After informed consent was obtained and after detailed explanation of risks, benefits as well as alternative therapies, the patient elected to proceed with angiogram and angioplasty. The right radial area was prepped and draped in normal sterile fashion. Right radial artery was cannulated via modified Seldinger technique with placement of a 6-[place] sheath. All catheters were exchanged through the sheath. FINDINGS: Left anterior descending ostium has 80% stenosis. This leads to a non-grafted LAD diagonal. This was not filled by the VARGHESE graft. This was addressed with a 3.0 x 8 mm [place] stent. This caused plaque shift into the circumflex. The circumflex was ballooned with the stent balloon. Result was 0% residual throughout. OVERALL IMPRESSION: Successful percutaneous transluminal coronary angioplasty stent of the left anterior descending going from 80% initial stenosis to 0% residual. TRANSINT:[id number] Voice Confirmation ID: [id number] DOCUMENT ID: [id number] MCKENZIE HARDY MD at 1656 CC: [id number] DICTATION DATE: 11/17/16 1455 DENIAL RESOLUTION SPECIALIST: 11/17/16 1548 DEP CLI 11/17/16 [place] [id number] [place] [id number]
--- NOTE | 2016-12-08 16:56 | DS ---
PATIENT:REINALDO ANDERSON :32 MEDICAL RECORD: [id number] DISCHARGE SUMMARY ADMISSION DATE: 11/16/16 DISCHARGE DATE: 11/17/16 DATE OF SERVICE: 11/17/2016 DISCHARGE DIAGNOSES: 1. Angina. 2. Coronary artery disease. 3. Percutaneous transluminal coronary angioplasty stent, right coronary artery and left anterior descending this admission. 4. Hypertension. 5. Hyperlipidemia. HOSPITAL COURSE: Mr. Anderson presents with anginal symptomatology, found to have 2-vessel coronary artery disease of the LAD and RCA, underwent successful PTCA stent of above territories, had an uneventful postop course. No further angina. Discharged home with the addition of aspirin and Plavix to his medical regimen. He will follow up with [facility] in 1 month. TRANSINT:[id number] Voice Confirmation ID: [id number] DOCUMENT ID: [id number] MCKENZIE HARDY MD at 1656 CC: [id number] DICTATION DATE: 11/17/16 1454 STEAM HAMMER OPERATOR: 11/17/16 2222 DEP CLI 11/17/16 [place] [id number] [place] [address]
== END 2016-11-17 19:38 | disposition home or self-care (01) ==
LOC: OBSVTIME → D.ER 07:32 → D.OPS 07:32 → D.M2 08:37 → D.ER 08:37 → D.M2 08:37 → OBSVTIME 08:37 → EDSTATUS 10:30 → D.OPS 11-17 19:38 → D.M2 11-17 19:38
PROVIDERS: Emergency Medicine
DX: I25.119 Atherosclerotic heart disease of native coronary artery with unspecified angina pectoris (principal); Z95.5 Presence of coronary angioplasty implant and graft; T82.855A Stenosis of coronary artery stent, initial encounter; Y83.8 Other surgical procedures as the cause of abnormal reaction of the patient, or of later complication, without mention of misadventure at the time of the procedure; I10 Essential (primary) hypertension; E78.5 Hyperlipidemia, unspecified
CPT/HCPCS: 93459; 92978; 92920; C9600 ×2

== ENCOUNTER 2016-11-18 17:19 | Emergency (ER) | payer MEDICARE, OTHER ==
[2016-11-17 14:21] VITALS: BMI 31.1
[~2016-11-18 17:19] MED LIST changes: +CARAFATE1 G/10 ML PO; +NEURONTIN600 MG PO; +PROTONIX40 MG PO
[2016-11-18 18:11] LABS: BASOPHILS 0.2 % (0-2); EOSINOPHILS 1.4 % (0-7); HEMATOCRIT 41.2 % (42.0-54.0); HEMOGLOBIN 13.9 g/dL (13.5-17.5); IMMATURE GRANULOCYTES 0.2 % (0-5); LYMPHOCYTES 24.6 % (15-50); MCHC 33.7 g/dL (31.0-37.0); MEAN PLATELET VOLUME 11.1 fL (7.4-10.4); MONOCYTES 14.2 % (2-11); NEUTROPHILS 59.4 % (40-80); PLATELET COUNT 103 10x3/uL (130-400); RBC 4.48 10x6/uL (4.20-6.10); WBC 5.1 10x3/uL (4.8-10.8)
[2016-11-18 18:25] LABS: ALBUMIN 3.2 g/dL (3.4-5.0); ALKALINE PHOSPHATASE 75 U/L (46-116); ALT (SGPT) 19 U/L (10-68); BILIRUBIN - TOTAL 0.92 mg/dL (0.2-1.3); CALC OSMOLALITY 265 mosm/kg (275-300); CALCIUM 8.3 mg/dL (8.5-10.1); CARBON DIOXIDE 27.2 mmol/L (21.0-32.0); CHLORIDE - SERUM 101 mmol/L (98-107); CREATININE - SERUM 0.9 mg/dL (0.6-1.3); GLUCOSE 116 mg/dL (74-106); POTASSIUM - SERUM 3.7 mmol/L (3.5-5.1); PROTEIN - SERUM 6.7 g/dL (6.4-8.2); SODIUM 133 mmol/L (136-145); UREA NITROGEN 9 mg/dL (7-18); eGFR NON AFRICAN AMERICAN 85 mL/min (90-120)
[2016-11-18 18:42] LABS: CHOL - HDL RATIO 4.1 ratio (2.3-4.9); CHOLESTEROL, TOTAL 138 mg/dL (0-200); CKMB 0.3 U/L (0.0-3.6); CREATINE KINASE 44 UL (21-232); HDL CHOLESTEROL 34 mg/dL (32-96); LDL CHOLESTEROL 78 mg/dL (0-100); LDL-HDL RATIO 2.3 ratio (1.5-3.5); TRIGLYCERIDE 131 mg/dL (30-200)
[2016-11-18 18:50] LABS: TROPONIN-I 0.146 ng/mL (0.000-0.060)
== END 2016-11-18 20:32 | disposition home or self-care (01) ==
LOC: D.ER 17:19
PROVIDERS: Emergency Medicine
DX: B02.9 Zoster without complications (principal); R07.89 Other chest pain; I10 Essential (primary) hypertension; E11.9 Type 2 diabetes mellitus without complications; I44.0 Atrioventricular block, first degree

== ENCOUNTER → 2017-11-06 10:23 | Outpatient (CLI) | payer MEDICARE, OTHER ==
[~2017-11-06 10:23] MED LIST changes: +FLAGYL500 MG PO; +FLORAJEN3 CAPS460 MG PO; +IMODIUM2 MG PO
== END | disposition home or self-care (01) ==
LOC: D.CT 11-01 15:30
DX: I71.4 Abdominal aortic aneurysm, without rupture (principal)

== ENCOUNTER 2017-11-11 13:23 | Emergency (ER) | payer MEDICARE, OTHER ==
[~2017-11-11] VITALS: Ht 172.7 cm; Wt 100.0 kg
[~2017-11-11 13:23] MED LIST changes: -FLAGYL500 MG PO; -FLORAJEN3 CAPS460 MG PO; -IMODIUM2 MG PO
[2017-11-11 13:44] VITALS: Ht 172.7 cm; Wt 100.0 kg
[2017-11-11 15:36] LABS: BASOPHILS 0.4 % (0-2); EOSINOPHILS 1.8 % (0-7); HEMATOCRIT 43.8 % (42.0-54.0); IMMATURE GRANULOCYTES 0.2 % (0-5); LYMPHOCYTES 24.3 % (15-50); MCH 30.4 pg (26.0-34.0); MCHC 34.2 g/dL (31.0-37.0); MCV 88.7 fL (80.0-100.0); MONOCYTES 13.4 % (2-11); NEUTROPHILS 59.9 % (40-80); PLATELET COUNT 109 10x3/uL (130-400); RBC 4.94 10x6/uL (4.20-6.10); RDW 14.7 % (11.5-14.5); WBC 5.7 10x3/uL (4.8-10.8)
[2017-11-11 15:52] LABS: ALBUMIN 3.5 g/dL (3.4-5.0); ALKALINE PHOSPHATASE 62 U/L (46-116); ALT (SGPT) 37 U/L (10-68); BILIRUBIN - TOTAL 0.81 mg/dL (0.2-1.3); CALC OSMOLALITY 278 mosm/kg (275-300); CARBON DIOXIDE 25.4 mmol/L (21.0-32.0); CHLORIDE - SERUM 104 mmol/L (98-107); GLUCOSE 129 mg/dL (74-106); MAGNESIUM - SERUM 1.9 mg/dL (1.8-2.4); PROTEIN - SERUM 7.1 g/dL (6.4-8.2); SODIUM 138 mmol/L (136-145); UREA NITROGEN 14 mg/dL (7-18); eGFR NON AFRICAN AMERICAN 75 mL/min (90-120)
[2017-11-11] MEDS ORDERED: IMODIUM2 MG PO (17:13)
[2017-11-11 17:21] VITALS: BP 135/61
== END 2017-11-11 17:22 | disposition home or self-care (01) ==
LOC: D.ER 13:23
PROVIDERS: Emergency Medicine
DX: R10.84 Generalized abdominal pain (principal); R19.7 Diarrhea, unspecified; E11.9 Type 2 diabetes mellitus without complications; I10 Essential (primary) hypertension; I25.810 Atherosclerosis of coronary artery bypass graft(s) without angina pectoris; I73.9 Peripheral vascular disease, unspecified

== ENCOUNTER 2017-11-12 11:35 | Inpatient (IN) | payer MEDICARE, OTHER ==
[~2017-11-12] VITALS: Ht 172.7 cm; Wt 101.2 kg
[~2017-11-12 11:35] MED LIST changes: +IMODIUM2 MG PO
[2017-11-12 12:34] LABS: BASOPHILS 0.2 % (0-2); EOSINOPHILS 2.7 % (0-7); HEMATOCRIT 42.7 % (42.0-54.0); HEMOGLOBIN 14.9 g/dL (13.5-17.5); IMMATURE GRANULOCYTES 0.2 % (0-5); LYMPHOCYTES 19.8 % (15-50); MCH 30.8 pg (26.0-34.0); MCHC 34.9 g/dL (31.0-37.0); MCV 88.4 fL (80.0-100.0); MEAN PLATELET VOLUME 10.7 fL (7.4-10.4); MONOCYTES 15.3 % (2-11); NEUTROPHILS 61.8 % (40-80); PLATELET COUNT 118 10x3/uL (130-400); RBC 4.83 10x6/uL (4.20-6.10); RDW 14.6 % (11.5-14.5); WBC 5.1 10x3/uL (4.8-10.8)
[2017-11-12 12:47] LABS: ALBUMIN 3.1 g/dL (3.4-5.0); ALKALINE PHOSPHATASE 63 U/L (46-116); BILIRUBIN - TOTAL 1.33 mg/dL (0.2-1.3); CALC OSMOLALITY 280 mosm/kg (275-300); CALCIUM 8.6 mg/dL (8.5-10.1); CARBON DIOXIDE 26.3 mmol/L (21.0-32.0); CHLORIDE - SERUM 104 mmol/L (98-107); CREATININE - SERUM 0.9 mg/dL (0.6-1.3); GLUCOSE 168 mg/dL (74-106); MAGNESIUM - SERUM 1.7 mg/dL (1.8-2.4); POTASSIUM - SERUM 3.4 mmol/L (3.5-5.1); PROTEIN - SERUM 6.6 g/dL (6.4-8.2); SODIUM 138 mmol/L (136-145); UREA NITROGEN 16 mg/dL (7-18); eGFR NON AFRICAN AMERICAN 85 mL/min (90-120)
[2017-11-12 12:51] LABS: ALT (SGPT) 26 U/L (10-68)
[2017-11-12 14:09] VITALS: BP 135/74
[2017-11-12 15:11] VITALS: BP 135/74; BMI 33.9
[2017-11-12 17:27] VITALS: BP 150/90
[2017-11-12 20:00] VITALS: BP 138/79
[2017-11-13 04:28] LABS: BASOPHILS 0.5 % (0-2); EOSINOPHILS 2.5 % (0-7); HEMATOCRIT 37.9 % (42.0-54.0); HEMOGLOBIN 13.1 g/dL (13.5-17.5); IMMATURE GRANULOCYTES 0.2 % (0-5); LYMPHOCYTES 28.8 % (15-50); MCH 30.4 pg (26.0-34.0); MCHC 34.6 g/dL (31.0-37.0); MCV 87.9 fL (80.0-100.0); MEAN PLATELET VOLUME 10.9 fL (7.4-10.4); PLATELET COUNT 131 10x3/uL (130-400); RBC 4.31 10x6/uL (4.20-6.10); RDW 14.4 % (11.5-14.5); WBC 4.4 10x3/uL (4.8-10.8)
[2017-11-13 04:48] LABS: ALBUMIN 2.8 g/dL (3.4-5.0); ALKALINE PHOSPHATASE 55 U/L (46-116); ALT (SGPT) 22 U/L (10-68); AMYLASE - SERUM 9 U/L (25-115); BILIRUBIN - TOTAL 0.84 mg/dL (0.2-1.3); CALC OSMOLALITY 278 mosm/kg (275-300); CARBON DIOXIDE 27.5 mmol/L (21.0-32.0); CHLORIDE - SERUM 105 mmol/L (98-107); CREATININE - SERUM 0.8 mg/dL (0.6-1.3); GLUCOSE 123 mg/dL (74-106); POTASSIUM - SERUM 3.1 mmol/L (3.5-5.1); PROTEIN - SERUM 6.2 g/dL (6.4-8.2); SODIUM 139 mmol/L (136-145); UREA NITROGEN 12 mg/dL (7-18); eGFR NON AFRICAN AMERICAN > 90 mL/min (90-120)
[2017-11-13 04:51] LABS: LIPASE 37 U/L (73-393)
[2017-11-13 05:13] VITALS: BP 102/53
[2017-11-13 08:00] VITALS: BP 134/70
[2017-11-13 11:56] VITALS: BP 143/77
[2017-11-13 12:41] VITALS: Ht 172.7 cm; Wt 101.2 kg
[2017-11-13 13:26] LABS: APPEARANCE CLEAR (CLEAR); BILIRUBIN NEGATIVE (NEGATIVE); COLOR YELLOW (YELLOW); GLUCOSE NEGATIVE (NEGATIVE); KETONE NEGATIVE (NEGATIVE); NITRITE NEGATIVE (NEGATIVE); PROTEIN NEGATIVE (NEGATIVE); UROBILINOGEN NORMAL (NORMAL)
[2017-11-13 20:35] VITALS: BP 136/69
[2017-11-14 04:00] VITALS: BP 142/64
[2017-11-14 04:17] VITALS: BP 136/67
[2017-11-14 04:28] LABS: BASOPHILS 0.8 % (0-2); EOSINOPHILS 2.8 % (0-7); HEMOGLOBIN 13.2 g/dL (13.5-17.5); IMMATURE GRANULOCYTES 0.4 % (0-5); LYMPHOCYTES 28.5 % (15-50); MCH 30.7 pg (26.0-34.0); MCHC 34.7 g/dL (31.0-37.0); MCV 88.4 fL (80.0-100.0); MEAN PLATELET VOLUME 10.6 fL (7.4-10.4); MONOCYTES 16.1 % (2-11); NEUTROPHILS 51.4 % (40-80); PLATELET COUNT 121 10x3/uL (130-400); RDW 14.6 % (11.5-14.5); WBC 4.7 10x3/uL (4.8-10.8)
[2017-11-14 04:43] LABS: CALC OSMOLALITY 280 mosm/kg (275-300); CALCIUM 7.4 mg/dL (8.5-10.1); CHLORIDE - SERUM 108 mmol/L (98-107); GLUCOSE 126 mg/dL (74-106); POTASSIUM - SERUM 3.2 mmol/L (3.5-5.1); SODIUM 141 mmol/L (136-145); eGFR NON AFRICAN AMERICAN 75 mL/min (90-120)
[2017-11-14 05:03] LABS: UREA NITROGEN 7 mg/dL (7-18)
[2017-11-14 09:44] VITALS: BP 116/580
[2017-11-14 17:42] VITALS: BP 136/51
[2017-11-14 20:00] VITALS: BP 137/73
[2017-11-15 04:57] LABS: EOSINOPHILS 2.3 % (0-7); HEMATOCRIT 35.8 % (42.0-54.0); HEMOGLOBIN 12.4 g/dL (13.5-17.5); IMMATURE GRANULOCYTES 0.4 % (0-5); LYMPHOCYTES 29.2 % (15-50); MCH 30.2 pg (26.0-34.0); MCHC 34.6 g/dL (31.0-37.0); MCV 87.3 fL (80.0-100.0); MEAN PLATELET VOLUME 10.6 fL (7.4-10.4); MONOCYTES 13.5 % (2-11); NEUTROPHILS 53.6 % (40-80); PLATELET COUNT 125 10x3/uL (130-400); RDW 14.6 % (11.5-14.5); WBC 5.2 10x3/uL (4.8-10.8)
[2017-11-15 05:24] LABS: ALBUMIN 2.6 g/dL (3.4-5.0); ALKALINE PHOSPHATASE 50 U/L (46-116); ALT (SGPT) 21 U/L (10-68); BILIRUBIN - TOTAL 0.53 mg/dL (0.2-1.3); CALCIUM 7.7 mg/dL (8.5-10.1); CARBON DIOXIDE 28.5 mmol/L (21.0-32.0); CHLORIDE - SERUM 104 mmol/L (98-107); CREATININE - SERUM 0.9 mg/dL (0.6-1.3); GLUCOSE 124 mg/dL (74-106); PROTEIN - SERUM 5.8 g/dL (6.4-8.2); SODIUM 134 mmol/L (136-145); eGFR NON AFRICAN AMERICAN 85 mL/min (90-120)
[2017-11-15 05:25] LABS: CALC OSMOLALITY 265 mosm/kg (275-300); UREA NITROGEN 5 mg/dL (7-18)
[2017-11-15 05:26] LABS: POTASSIUM - SERUM 2.8 mmol/L (3.5-5.1)
[2017-11-15 09:33] VITALS: BP 133/66
[2017-11-15 14:17] VITALS: BP 148/72
[2017-11-15 14:57] LABS: APPEARANCE CLEAR (CLEAR); BILIRUBIN NEGATIVE (NEGATIVE); COLOR YELLOW (YELLOW); GLUCOSE NEGATIVE (NEGATIVE); KETONE NEGATIVE (NEGATIVE); NITRITE NEGATIVE (NEGATIVE); PROTEIN NEGATIVE (NEGATIVE); UROBILINOGEN NORMAL (NORMAL)
[2017-11-15 15:00] VITALS: BP 136/74
[2017-11-15 15:03] LABS: BACTERIA FEW /hpf (NONE SEEN); EPITHELIAL CELLS 0-5 /hpf (0-5); WHITE CELLS - URINE 0-5 /hpf (0-5)
[2017-11-15 20:00] VITALS: BP 145/68
[2017-11-16 04:00] VITALS: BP 142/60
[2017-11-16 09:32] VITALS: BP 130/53
[2017-11-16] MEDS ORDERED: FLAGYL500 MG PO (09:53)
[2017-11-16] MEDS ORDERED: FLORAJEN3 CAPS460 MG PO (09:54)
== END 2017-11-16 10:55 | disposition home or self-care (01) | DRG 392 ==
LOC: D.MS 11:35
PROVIDERS: Family Medicine; Internal Medicine Gastroenterology
DX: A08.4 Viral intestinal infection, unspecified (principal); E87.6 Hypokalemia; E11.9 Type 2 diabetes mellitus without complications; Z79.84 Long term (current) use of oral hypoglycemic drugs; I10 Essential (primary) hypertension; I25.10 Atherosclerotic heart disease of native coronary artery without angina pectoris; Z95.1 Presence of aortocoronary bypass graft; Z95.5 Presence of coronary angioplasty implant and graft; I73.9 Peripheral vascular disease, unspecified; F03.90 Unspecified dementia, unspecified severity, without behavioral disturbance, psychotic disturbance, mood disturbance, and anxiety; K21.9 Gastro-esophageal reflux disease without esophagitis

== ENCOUNTER → 2018-03-15 09:45 | Outpatient (CLI) | payer MEDICARE, OTHER ==
[2017-11-13 12:41] VITALS: BMI 33.9
[~2018-03-15 09:45] MED LIST changes: +FLAGYL500 MG PO; +FLORAJEN3 CAPS460 MG PO
== END | disposition home or self-care (01) ==
LOC: D.RAD 09:45
DX: R13.10 Dysphagia, unspecified (principal); R14.2 Eructation; K59.09 Other constipation; K92.1 Melena

== ENCOUNTER → 2018-12-16 08:57 | Outpatient (CLI) | payer MEDICARE, OTHER ==
[2017-11-13 12:41] VITALS: BMI 33.9
== END | disposition home or self-care (01) ==
LOC: D.CT 12-12 15:30
PROVIDERS: ATTEND Internal Medicine Cardiovascular Disease
DX: I71.4 Abdominal aortic aneurysm, without rupture (principal)